=== PATIENT | male | born 1955 ===

== ENCOUNTER 2016-11-07 11:51 | Emergency (ER) | payer OTHER ==
[2016-11-07 11:54] VITALS: BMI 28.8
[2016-11-07 12:15] VITALS: BP 114/68; PULSE 78; RESP 18; TEMP 98.1; O2SAT 100
[2016-11-07] MEDS ORDERED: Iohexol 240 (50 ml) PO ONE (12:29)
[2016-11-07] MEDS ORDERED: Sodium Chloride 0.9% 1,000 ML IV STA ×2 (12:30→18:18)
--- NOTE | 2016-11-07 12:37 | ED PDOC ---
HPI: General Adult Time Seen by Provider: 11/07/16 12:25 Chief Complaint (Nursing): Flu-like Symptoms Chief Complaint (Provider): Bodyaches, vomiting History Per: Patient History/Exam Limitations: no limitations Onset/Duration Of Symptoms: Days (8) Have you had recent travel within the past 21 days to any of the following countries: [place], [place], [place] or [place]?: No Current Symptoms Are (Timing): Still Present Severity: Moderate Additional History Per: Patient Additional Complaint(s): The pt is a 61yo male with PMHx of HIV, clavicle tumor (surgeries for removal in 2004, 2009, 2014), pelvic surgery in 2016, presents to the ED for evaluation of bodyaches and vomiting for the past 8 days. Pt reports abdominal pain as well with associated dark colored diarrhea. He reports tactile fever and chills and states he is unable to eat anything. He denies any alcohol use, or taking medications for his symptoms. Pt additionally denies history of gastric ulcers. Of note, pt is currently on fentanyl and other medications due to his tumor history. He currently offers no additional medical complaints. PMD: Dr. Brad Ngo Past Medical History Reviewed: Historical Data, Nursing Documentation, Vital Signs Vital Signs: Last Vital Signs Temp 98.1 F 11/07/16 12:10 Pulse 78 11/07/16 12:10 Resp 18 11/07/16 12:10 BP 114/68 11/07/16 12:10 Pulse Ox 100 11/07/16 19:04 - Medical History PMH: Anemia, Arthritis, Depression, HIV, HTN, Hypercholesterolemia, Hypothyroidism, Malignancy, Sexually Transmitted Disease (HIV) Denies: CHF, COPD, Chronic Kidney Disease, Rheumatoid Arthritis - Surgical History Surgical History: Appendectomy - Family History Family History: States: Unknown Family Hx - Home Medications Home Medications: Ambulatory Orders Medication Instructions Recorded Azithromycin [Zithromax] 250 mg PO DAILY #1 packet 07/14/16 Benzonatate [Tessalon Perles] 100 mg PO TID #15 sgl 07/14/16 Cyanocobalamin [Vitamin B12 1000 1,000 mcg PO DAILY 07/14/16 mcg Tab] Darunavir [Prezista] 800 mg PO DAILY 07/14/16 Dolutegravir Sodium [Tivicay] 50 mg PO DAILY 07/14/16 Escitalopram [Lexapro] 20 mg PO DAILY 07/14/16 Folic Acid [Folic Acid] 1 mg PO DAILY 07/14/16 Gabapentin [Neurontin] 400 mg PO TID 07/14/16 Levothyroxine Sodium [Levoxyl] 137 mcg PO DAILY 07/14/16 Metoprolol Tartrate [Lopressor] 50 mg PO DAILY 07/14/16 Omeprazole [Omeprazole] 20 mg PO DAILY 07/14/16 Ritonavir [Norvir] 100 mg PO DAILY 07/14/16 Tamsulosin [Flomax] 0.4 mg PO DAILY 07/14/16 fentaNYL 100mcg/hr [Duragesic 1 patch TD Q72H 07/14/16 Patch 100mcg/hr] valACYclovir [Valtrex] 1 gm PO DAILY 07/14/16 Famotidine [Pepcid] 20 mg PO BID #10 tab 11/07/16 Ondansetron ODT [Zofran ODT] 4 mg PO Q8 PRN #4 odt 11/07/16 - Allergies Allergies/Adverse Reactions: Allergies Allergy/AdvReac Type Severity Reaction Status Date / Time No Known Allergies Allergy Verified 11/07/16 12:10 Review of Systems ROS Statement: Except As Marked, All Systems Reviewed And Found Negative Constitutional: Positive for: Malaise Gastrointestinal: Positive for: Vomiting, Abdominal Pain, Diarrhea (dark) Physical Exam - Reviewed Nursing Documentation Reviewed: Yes Vital Signs Reviewed: Yes - Physical Exam Appears: Positive for: Well, Non-toxic, Uncomfortable Head Exam: Positive for: ATRAUMATIC, NORMAL INSPECTION, NORMOCEPHALIC Skin: Positive for: Normal Color Eye Exam: Positive for: Normal appearance, EOMI, PERRL Neck: Positive for: Normal, Supple Cardiovascular/Chest: Positive for: Regular Rate, Rhythm Respiratory: Positive for: Normal Breath Sounds. Negative for: Respiratory Distress Gastrointestinal/Abdominal: Positive for: Soft, Tenderness (epigastric tenderness and mild right lower quadrant tenderness noted) Neurologic/Psych: Positive for: Alert, Oriented - Laboratory Results Result Diagrams: 11/07/16 13:45 11/07/16 14:30 - ECG O2 Sat by Pulse Oximetry: 100 (RA) Pulse Ox Interpretation: Normal Medical Decision Making Medical Decision Making: Time: 1234 Impression: Abdominal pain w/ vomiting and dark colored diarrhea x 8 days Plan: * CT AP w/ PO & IV Contrast * Bloodwork * IV Fluids * Zofran 4mg IVP * Protonix 80 mg IVP * Urinalysis * Reassess Time: 1903 CT AP FINDINGS: Lower thorax: No acute findings. ABDOMEN: Liver: There are 2 unchanged subcentimeter left hepatic lobe lesions too small to characterize by CT criteria. Gallbladder and bile ducts: Unremarkable. No calcified stones. No ductal dilation. Pancreas: Unremarkable. No mass. No ductal dilation. Spleen: Unremarkable. No splenomegaly. Adrenals: A 3.6 x 3.1 cm coarsely calcified left adrenal nodule is unchanged. A 1.5 x 1.4 cm coarsely calcified right adrenal nodule is unchanged Kidneys and ureters: Unremarkable. No solid mass. No hydronephrosis. Stomach and bowel: Unremarkable. No obstruction. No mucosal thickening. Appendix: There has been an appendectomy. PELVIS: Bladder: Unremarkable. No mass. Reproductive: Unremarkable as visualized. ABDOMEN and PELVIS: Intraperitoneal space: Unremarkable. No free air. No significant fluid collection. Bones/joints: Patient is post bilateral total hip arthroplasty. No acute fracture. No dislocation. Soft tissues: Unremarkable. Vasculature: Unremarkable. No abdominal aortic aneurysm. Lymph nodes: Unremarkable. No enlarged lymph nodes. IMPRESSION: No acute findings. Scribe Attestation: All records were documented by Martita Bloom, acting as a Scribe for SANDRINE Santos. Provider Scribe Attestation: All medical record entries made by the Scribe were at my direction and personally dictated by me. I have reviewed the chart and agree that the record accurately reflects my personal performance of the history, physical exam, medical decision making, and the department course for this patient. I have also personally directed, reviewed, and agree with the discharge instructions and disposition. Disposition - Clinical Impression Clinical Impression: Viral illness - Patient ED Disposition Is Patient to be Admitted: No - Disposition Disposition: Routine/Home Disposition Time: 19:48 Condition: FAIR Prescriptions: Famotidine [Pepcid] 20 mg PO BID #10 tab Ondansetron ODT [Zofran ODT] 4 mg PO Q8 PRN #4 odt PRN Reason: Nausea/Vomiting Instructions: Viral Syndrome (ED) Print Language: ARMENIAN
[2016-11-07] MEDS ORDERED: Iohexol 240 (50 ml) ONE (13:24)
[2016-11-07 13:53] LABS: BASO % 0.8 % (0.0-2.0); EOS # 0.2 K/uL (0.0-0.7); EOS % 3.3 % (0.0-4.0); HEMATOCRIT 32.3 % (35.0-51.0); LYMPH # 1.9 K/uL (1.0-4.3); MEAN CELL VOLUME 93.8 fl (80.0-94.0); MEAN CORPUSCULAR HEMOGLOBIN 31.5 pg (27.0-31.0); MEAN CORPUSCULAR HGB CONC 33.6 g/dL (33.0-37.0); MEAN PLATELET VOLUME 7.8 fl (7.2-11.7); MONO # 0.5 K/uL (0.0-0.8); MONO % 8.9 % (0.0-10.0); NEUT # 2.7 K/uL (1.8-7.0); RED CELL DISTRIBUTION WIDTH 15.1 % (11.5-14.5); WHITE BLOOD COUNT 5.3 K/uL (4.8-10.8)
[2016-11-07 14:28] LABS: RBC URINE 2 /hpf (0-3); URINE BACTERIA RARE (<OCC); URINE BILIRUBIN NEGATIVE (NEGATIVE); URINE BLOOD NEGATIVE (NEGATIVE); URINE COLOR YELLOW (YELLOW); URINE GLUCOSE (UA) NEG (Normal); URINE KETONE NEGATIVE (NEGATIVE); URINE LEUKOCYTE ESTERASE NEG Leu/uL (Negative); URINE PROTEIN 30 mg/dL (NEGATIVE); URINE UROBILINOGEN 0.2-1.0 mg/dL (0.2-1.0); WBC URINE 3 /hpf (0-5)
[2016-11-07 15:05] LABS: ALB/GLOB RATIO 1.2 (1.0-2.1); ALKALINE PHOSPHATASE 101 U/L (38-126); ALT/SGPT 36 U/L (21-72); AST/SGOT 40 U/L (17-59); BILIRUBIN,TOTAL 0.3 mg/dl (0.2-1.3); BLOOD UREA NITROGEN 8 mg/dl (9-20); CALCIUM 9.1 mg/dL (8.4-10.2); CARBON DIOXIDE 22 mmol/L (22-30); CHLORIDE 109 mmol/L (98-107); GFR AFRICAN-AMERICAN > 60; GLUCOSE,RANDOM 85 mg/dL (75-110); LIPASE 105 U/L (23-300); POTASSIUM 3.8 MMOL/L (3.6-5.0); SODIUM 139 mmol/l (132-148); TOTAL PROTEIN 6.9 G/DL (6.3-8.2)
[2016-11-07] MEDS ORDERED: Sodium Chloride 0.9% 50 ML IV ONE (17:41)
[2016-11-07] MEDS ORDERED: Iohexol 300 100 ML IJ ONE (17:41)
--- NOTE | 2016-11-08 09:58 | CT ---
PROCEDURE: CT Abdomen and Pelvis with contrast HISTORY: abd pain h/o bony tumor COMPARISON: 02/06/2016. TECHNIQUE: Contrast dose: 98 cc Omnipaque Radiation dose: Total exam DLP = 1918.94 mGy-cm. This CT exam was performed using one or more of the following dose reduction techniques: Automated exposure control, adjustment of the mA and/or kV according to patient size, and/or use of iterative reconstruction technique. FINDINGS: LOWER THORAX: Mild bibasilar atelectatic changes noted. The heart is not enlarged. There is no significant pericardial effusion. Coronary arterial calcifications noted. LIVER: Scattered geographic hypoattenuation could represent hepatic steatosis. Sub centimeter stable hypodensities noted in the left hepatic lobe, too small to characterize accurately, likely represent cysts or hemangiomas. GALLBLADDER AND BILE DUCTS: Unremarkable. PANCREAS: Unremarkable. No gross lesion or ductal dilatation. SPLEEN: Unremarkable. ADRENALS: Bilateral adrenal masses with coarse calcifications and stable. KIDNEYS AND URETERS: Unremarkable. No hydronephrosis. No solid mass. Bilateral dual collecting systems. VASCULATURE: Scattered atherosclerotic calcification throughout the abdominal aorta and its main branches. No abdominal aortic aneurysm. BOWEL: No bowel obstruction. APPENDIX: No CT evidence of acute appendicitis. PERITONEUM: Fluid in the cul-de-sac suboptimally evaluated due to extensive streak artifact from bilateral hip prosthesis. LYMPH NODES: Scattered lymph nodes along the pelvic sidewalls. The largest on the left measures 1.5 centimeters. The largest on the right measures 0.8 centimeters. This BLADDER: Bladder suboptimally seen due to streak artifact from bilateral hip prosthesis. REPRODUCTIVE: Lower pelvic structures suboptimally seen due to streak artifact from bilateral hip prosthesis. BONES: Bilateral hip prosthesis. Heterotopic bone formation in both hips. OTHER FINDINGS: None. IMPRESSION: No acute findings. Please note that this report is in general agreement with the preliminary report provided by [facility].
--- NOTE | 2016-11-10 10:11 | CARD ---
APPROVED REPORT EKG Measurement Heart [id number] <Conclusion> Normal sinus rhythm Right bundle branch block Abnormal ECG
== END 2016-11-07 20:30 | disposition home or self-care (01) ==
LOC: H.ER 11:51
DX: B34.9 Viral infection, unspecified (principal); I10 Essential (primary) hypertension; Z96.643 Presence of artificial hip joint, bilateral; Z86.59 Personal history of other mental and behavioral disorders; B20 Human immunodeficiency virus [HIV] disease

== ENCOUNTER 2016-12-29 12:06 | Observation (INO) | payer OTHER ==
[2016-12-29 12:06] VITALS: BMI 28.8
[2016-12-29 12:35] VITALS: BP 131/79; PULSE 80; RESP 16; TEMP 98.6; O2SAT 100
[2016-12-29] MEDS ORDERED: Sodium Chloride 0.9% 1,000 ML IV STA (13:09)
[2016-12-29] MEDS ORDERED: Iohexol 240 (50 ml) PO ONE (13:09)
[2016-12-29] MEDS ORDERED: Morphine 4 MG/ML VIAL IV ONE (13:09)
--- NOTE | 2016-12-29 13:14 | ED PDOC ---
HPI: Abdomen Time Seen by Provider: 12/29/16 12:46 Chief Complaint (Nursing): Abdominal Pain Chief Complaint (Provider): Abd pain History Per: Patient History/Exam Limitations: no limitations Onset/Duration Of Symptoms: Days (3) Additional Complaint(s): Pt. with diffuse abd pain. Nausea, vomit, diarrhea nonbloody. Pt. with no chest pain, dyspnea, weakness, headaches, dizziness. No back pain or dysuria. No new food or drinks. On fentanyl patches. Past Medical History Reviewed: Nursing Documentation, Vital Signs Vital Signs: Last Vital Signs Temp 98.6 F 12/29/16 12:32 Pulse 80 12/29/16 12:32 Resp 16 12/29/16 12:32 BP 131/79 12/29/16 12:32 Pulse Ox 100 12/29/16 16:27 - Medical History PMH: Anemia, Arthritis, Depression, HIV, HTN, Hypercholesterolemia, Hypothyroidism, Malignancy, Sexually Transmitted Disease (HIV) Denies: CHF, COPD, Chronic Kidney Disease, Rheumatoid Arthritis - Surgical History Surgical History: Appendectomy - Family History Family History: States: Unknown Family Hx - Social History Alcohol: None Drugs: Denies - Home Medications Home Medications: Ambulatory Orders Medication Instructions Recorded Azithromycin [Zithromax] 250 mg PO DAILY #1 packet 07/14/16 Benzonatate [Tessalon Perles] 100 mg PO TID #15 sgl 07/14/16 Cyanocobalamin [Vitamin B12 1000 1,000 mcg PO DAILY 07/14/16 mcg Tab] Darunavir [Prezista] 800 mg PO DAILY 07/14/16 Dolutegravir Sodium [Tivicay] 50 mg PO DAILY 07/14/16 Escitalopram [Lexapro] 20 mg PO DAILY 07/14/16 Folic Acid [Folic Acid] 1 mg PO DAILY 07/14/16 Gabapentin [Neurontin] 400 mg PO TID 07/14/16 Levothyroxine Sodium [Levoxyl] 137 mcg PO DAILY 07/14/16 Metoprolol Tartrate [Lopressor] 50 mg PO DAILY 07/14/16 Omeprazole [Omeprazole] 20 mg PO DAILY 07/14/16 Ritonavir [Norvir] 100 mg PO DAILY 07/14/16 Tamsulosin [Flomax] 0.4 mg PO DAILY 07/14/16 fentaNYL 100mcg/hr [Duragesic 1 patch TD Q72H 07/14/16 Patch 100mcg/hr] valACYclovir [Valtrex] 1 gm PO DAILY 07/14/16 Famotidine [Pepcid] 20 mg PO BID #10 tab 11/07/16 Ondansetron ODT [Zofran ODT] 4 mg PO Q8 PRN #4 odt 11/07/16 - Allergies Allergies/Adverse Reactions: Allergies Allergy/AdvReac Type Severity Reaction Status Date / Time No Known Allergies Allergy Verified 12/29/16 12:32 Review of Systems ROS Statement: Except As Marked, All Systems Reviewed And Found Negative Gastrointestinal: Positive for: Nausea, Vomiting, Abdominal Pain, Diarrhea Physical Exam - Reviewed Nursing Documentation Reviewed: Yes Vital Signs Reviewed: Yes - Physical Exam Appears: Positive for: Non-toxic, No Acute Distress Head Exam: Positive for: ATRAUMATIC, NORMAL INSPECTION, NORMOCEPHALIC Skin: Positive for: Normal Color, Warm, DRY Eye Exam: Positive for: EOMI, Normal appearance, PERRL ENT: Positive for: Normal ENT Inspection Neck: Positive for: Normal, Painless ROM Cardiovascular/Chest: Positive for: Regular Rate, Rhythm Respiratory: Positive for: CNT, Normal Breath Sounds Gastrointestinal/Abdominal: Positive for: Bowel Sounds, Soft, Tenderness ( diffuse). Negative for: Distended, Guarding Back: Positive for: Normal Inspection. Negative for: L CVA Tenderness, R CVA Tenderness Extremity: Positive for: Normal ROM. Negative for: Tenderness, Pedal Edema Neurologic/Psych: Positive for: Alert, Oriented - Laboratory Results Result Diagrams: 12/29/16 13:33 12/29/16 13:33 Interpretation Of Abn Labs: no acute - ECG O2 Sat by Pulse Oximetry: 100 ED OBSERVATION Discharge: Yes Date of observation admission: 12/29/16 Time of observation admission: 13:15 - Observation admission statement Patient is being placed in observation because:: Abd pain - Goals of Observation Goals of observation are:: Pain eval - Progress Note Progress Note: 12/29/16 17:11 Pain free. Tolerated po. AAOx3. Fu with pcp. Disposition - Clinical Impression Clinical Impression: Abdominal pain - Patient ED Disposition Is Patient to be Admitted: No Counseled Patient/Family Regarding: Studies Performed, Diagnosis, Need For Followup - Disposition Disposition: Routine/Home Disposition Time: 17:12 Condition: STABLE
[2016-12-29] MEDS ORDERED: Iohexol 240 (50 ml) ONE (13:20)
[2016-12-29 13:42] LABS: BASO # 0.1 K/uL (0.0-0.2); BASO % 0.9 % (0.0-2.0); EOS # 0.2 K/uL (0.0-0.7); EOS % 2.4 % (0.0-4.0); HEMOGLOBIN 12.9 g/dL (12.0-18.0); LYMPH # 2.2 K/uL (1.0-4.3); LYMPH % 35.3 % (20.0-40.0); MEAN CELL VOLUME 97.2 fl (80.0-94.0); MEAN CORPUSCULAR HEMOGLOBIN 32.6 pg (27.0-31.0); MEAN CORPUSCULAR HGB CONC 33.5 g/dL (33.0-37.0); MEAN PLATELET VOLUME 7.7 fl (7.2-11.7); MONO # 0.5 K/uL (0.0-0.8); MONO % 7.3 % (0.0-10.0); NEUT # 3.4 K/uL (1.8-7.0); NEUT % 54.1 % (50.0-75.0); RBC 3.97 Mil/uL (4.40-5.90); RED CELL DISTRIBUTION WIDTH 16.6 % (11.5-14.5); WHITE BLOOD COUNT 6.4 K/uL (4.8-10.8)
[2016-12-29 13:51] LABS: ALB/GLOB RATIO 1.2 (1.0-2.1); ALBUMIN 4.8 g/dL (3.5-5.0); ALT/SGPT 37 U/L (21-72); AST/SGOT 36 U/L (17-59); BLOOD UREA NITROGEN 15 mg/dl (9-20); GFR AFRICAN-AMERICAN > 60; GFR NON-AFRICAN AMERICAN > 60; LIPASE 82 U/L (23-300)
[2016-12-29] MEDS ORDERED: Iohexol 300 100 ML IJ ONE (15:00)
[2016-12-29] MEDS ORDERED: Sodium Chloride 0.9% 50 ML IV ONE (15:01)
--- NOTE | 2016-12-29 16:59 | CT ---
PROCEDURE: CT Abdomen and Pelvis with contrast HISTORY: abd pain COMPARISON: 11/07/2016 TECHNIQUE: Contrast dose: 95 mL Omnipaque 300 Radiation dose: Total exam DLP = 709.02 mGy-cm. This CT exam was performed using one or more of the following dose reduction techniques: Automated exposure control, adjustment of the mA and/or kV according to patient size, and/or use of iterative reconstruction technique. FINDINGS: LOWER THORAX: Unremarkable. LIVER: Normal attenuation. Multiple small low-attenuation lesions, nonspecific. Largest 1.3 cm in left lobe of liver. No biliary dilatation. Smooth contour. Mild hepatomegaly. GALLBLADDER AND BILE DUCTS: Unremarkable. PANCREAS: Unremarkable. No gross lesion or ductal dilatation. SPLEEN: Unremarkable. ADRENALS: Right adrenal mass with coarse calcifications, 1.4 cm. No change. Several left adrenal masses with coarse calcifications, largest 3.1 cm. No change. KIDNEYS AND URETERS: 6 mm nonspecific low attenuation lesion in the mid right kidney. No other renal mass. No calculus or hydronephrosis. VASCULATURE: Unremarkable. No aortic aneurysm. BOWEL: Sigmoid diverticulosis. No evidence of diverticulitis. No bowel obstruction. Mural thickening of short segment of superior rectum, likely artifactual due to inadequate distention. Recent examination of 11/07/2016 showed no mural thickening with adequate distention with enteral contrast. APPENDIX: Not identified. No secondary findings to suggest acute appendicitis. PERITONEUM: No ascites. No pneumoperitoneum. LYMPH NODES: Unremarkable. No enlarged lymph nodes. BLADDER: Limited evaluation due to beam hardening artifact from bilateral hip prostheses. Grossly normal. REPRODUCTIVE: Unable to evaluate prostate due to beam hardening artifact from hip prostheses. BONES: No acute fracture. OTHER FINDINGS: Status post bilateral total hip replacement. IMPRESSION: No acute abnormality. Minor findings as above.
== END 2016-12-29 17:25 | disposition home or self-care (01) ==
LOC: H.ER 12:06 → H.EROBSV 13:09
PROVIDERS: ADMIT Emergency Medicine; ATTEND Emergency Medicine
DX: R10.9 Unspecified abdominal pain (principal); Z21 Asymptomatic human immunodeficiency virus [HIV] infection status; E03.9 Hypothyroidism, unspecified; E78.00 Pure hypercholesterolemia, unspecified; I10 Essential (primary) hypertension; D64.9 Anemia, unspecified; F32.9 Major depressive disorder, single episode, unspecified; M19.90 Unspecified osteoarthritis, unspecified site; Z79.899 Other long term (current) drug therapy

== ENCOUNTER 2017-07-09 17:59 | Emergency (ER) | payer OTHER ==
[2017-07-09 17:59] VITALS: BMI 28.8
[2017-07-09 18:17] VITALS: TEMP 98.1
[2017-07-09] MEDS ORDERED: Sodium Chloride 0.9% 1,000 ML IV STA (18:56)
[2017-07-09 20:10] LABS: VENOUS BLOOD GAS BASE EXCESS -0.4 mmol/L (0.0-2.0); VENOUS BLOOD GAS PCO2 38 mmHg (40-60); VENOUS BLOOD GAS PO2 61 mm/Hg (30-55); VENOUS BLOOD PH 7.41 (7.32-7.43)
[2017-07-09 20:10] LABS: BASO # 0.1 K/uL (0.0-0.2); BASO % 1.4 % (0.0-2.0); EOS # 0.2 K/uL (0.0-0.7); EOS % 1.6 % (0.0-4.0); HEMOGLOBIN 10.5 g/dL (12.0-18.0); LYMPH % 30.2 % (20.0-40.0); MEAN CORPUSCULAR HEMOGLOBIN 33.8 pg (27.0-31.0); MEAN CORPUSCULAR HGB CONC 34.2 g/dL (33.0-37.0); MEAN PLATELET VOLUME 7.9 fl (7.2-11.7); MONO # 0.6 K/uL (0.0-0.8); NEUT # 6.1 K/uL (1.8-7.0); NEUT % 60.8 % (50.0-75.0); NRBC % 0.1 % (0.0-0.0); RBC 3.1 Mil/uL (4.40-5.90); RED CELL DISTRIBUTION WIDTH 15.2 % (11.5-14.5); WHITE BLOOD COUNT 10.1 K/uL (4.8-10.8)
[2017-07-09 20:11] VITALS: BP 109/71; PULSE 81; RESP 16; O2SAT 96
--- NOTE | 2017-07-09 20:34 | ED PDOC ---
HPI: Abdomen Chief Complaint (Provider): Abdominal Pain History Per: Patient History/Exam Limitations: no limitations Onset/Duration Of Symptoms: Days (2-3 days ago) Current Symptoms Are (Timing): Still Present Location Of Pain/Discomfort: Suprapubic Associated Symptoms: Other (flank pain) <Ariella Morrow - Last Filed: 07/09/17 23:47> <Bruce Swanson - Last Filed: 07/10/17 01:47> Time Seen by Provider: 07/09/17 18:17 Chief Complaint (Nursing): Abdominal Pain Additional Complaint(s): 62 y/o male with a history of HTN, HIV, Hypothyroidism, presents to the ED complaining of constant suprapubic pain radiating towards his left flank associated with dark urine and burning sensation upon urination, onset of 2-3 days. Patient reports pain has worsened since onset and states that he had similar symptoms in the past when he had a kidney infection. He denies any melena or hematochezia, chills, fever, vomiting, constipation or diarrhea. ( Ariella Morrow) Past Medical History Reviewed: Historical Data, Nursing Documentation, Vital Signs - Medical History PMH: Anemia, Arthritis, Depression, HIV, HTN, Hypercholesterolemia, Hypothyroidism, Malignancy, Sexually Transmitted Disease (HIV) Denies: CHF, COPD, Chronic Kidney Disease, Rheumatoid Arthritis - Surgical History Surgical History: Appendectomy Other surgeries: Bilateral Hip Replacements - Family History Family History: States: Hypertension - Social History Current smoker - smoking cessation education provided: No Ex-Smoker (has not smoked in the last 12 months): No Alcohol: None Drugs: Denies <Ariella Morrow - Last Filed: 07/09/17 23:47> <Bruce Swanson - Last Filed: 07/10/17 01:47> Vital Signs: Last Vital Signs Temp 98.1 F 07/09/17 18:15 Pulse 81 07/09/17 19:50 Resp 16 07/09/17 19:50 BP 109/71 07/09/17 19:50 Pulse Ox 96 07/09/17 23:49 - Home Medications Home Medications: Ambulatory Orders Medication Instructions Recorded Azithromycin [Zithromax] 250 mg PO DAILY #1 packet 07/14/16 Benzonatate [Tessalon Perles] 100 mg PO TID #15 sgl 07/14/16 Cyanocobalamin [Vitamin B12 1000 1,000 mcg PO DAILY 07/14/16 mcg Tab] Darunavir [Prezista] 800 mg PO DAILY 07/14/16 Dolutegravir Sodium [Tivicay] 50 mg PO DAILY 07/14/16 Escitalopram [Lexapro] 20 mg PO DAILY 07/14/16 Folic Acid [Folic Acid] 1 mg PO DAILY 07/14/16 Gabapentin [Neurontin] 400 mg PO TID 07/14/16 Levothyroxine Sodium [Levoxyl] 137 mcg PO DAILY 07/14/16 Metoprolol Tartrate [Lopressor] 50 mg PO DAILY 07/14/16 Omeprazole [Omeprazole] 20 mg PO DAILY 07/14/16 Ritonavir [Norvir] 100 mg PO DAILY 07/14/16 Tamsulosin [Flomax] 0.4 mg PO DAILY 07/14/16 fentaNYL 100mcg/hr [Duragesic 1 patch TD Q72H 07/14/16 Patch 100mcg/hr] valACYclovir [Valtrex] 1 gm PO DAILY 07/14/16 Famotidine [Pepcid] 20 mg PO BID #10 tab 11/07/16 Ondansetron ODT [Zofran ODT] 4 mg PO Q8 PRN #4 odt 11/07/16 Famotidine [Pepcid] 20 mg PO DAILY PRN #6 tab 12/29/16 Levofloxacin [Levaquin] 750 mg PO QAM #9 tablet 07/10/17 - Allergies Allergies/Adverse Reactions: Allergies Allergy/AdvReac Type Severity Reaction Status Date / Time No Known Allergies Allergy Verified 12/29/16 12:32 Review of Systems ROS Statement: Except As Marked, All Systems Reviewed And Found Negative Constitutional: Positive for: Weakness, Malaise, Other (fatigue). Negative for : Fever, Chills Gastrointestinal: Positive for: Abdominal Pain (suprapubic pain radiating to left flank). Negative for: Nausea, Vomiting, Diarrhea, Constipation, Melena, Hematochezia Genitourinary Male: Positive for: Dysuria (burning sensation), Other (dark urine ) <Ariella Morrow - Last Filed: 07/09/17 23:47> Physical Exam - Reviewed Nursing Documentation Reviewed: Yes Vital Signs Reviewed: Yes - Physical Exam Appears: Positive for: Non-toxic, In Acute Distress Head Exam: Positive for: ATRAUMATIC, NORMOCEPHALIC Skin: Positive for: Warm, Dry Eye Exam: Positive for: EOMI, PERRL ENT: Positive for: Other (dry mucus membranes). Negative for: Pharyngeal Erythema, Tonsillar Exudate Neck: Positive for: Painless ROM, Supple Cardiovascular/Chest: Positive for: Regular Rate, Rhythm, Chest Non Tender. Negative for: Murmur Respiratory: Positive for: Normal Breath Sounds. Negative for: Respiratory Distress Gastrointestinal/Abdominal: Positive for: Soft, Tenderness (suprapubic tenderness). Negative for: Mass, Distended, Guarding Back: Positive for: L CVA Tenderness. Negative for: Decreased ROM Extremity: Positive for: Normal ROM. Negative for: Deformity Lymphatic: Negative for: Adenopathy Neurologic/Psych: Positive for: Alert. Negative for: Motor/Sensory Deficits <Ariella Morrow - Last Filed: 07/09/17 23:47> - Laboratory Results Result Diagrams: 07/09/17 20:03 - ECG O2 Sat by Pulse Oximetry: 96 (RA) Pulse Ox Interpretation: Normal <Ariella Morrow - Last Filed: 07/09/17 23:47> - Laboratory Results Result Diagrams: 07/09/17 20:03 07/09/17 23:59 <Bruce Swanson - Last Filed: 07/10/17 01:47> Medical Decision Making: Time: --18:56 Impression: --Suprapubic pain radiating to left flank Differential: --UTI, Cystitis, Pylonephritis, Renal Colic, Colitis Plan: --Alcohol Serum --Labs --Drug Screen urine --Lact acid, plasma --Lipase --ED urine Dip --Toradol 30 mg IV --iV fluids --urine Culture --urinalysis --iv Insertion Reassess -- Scribe Attestation: Documented by Ty Chaney acting as a scribe for Ariella Morrow MD. Provider Attestation: All medical record entries made by the Scribe were at my direction and personally dictated by me. I have reviewed the chart and agree that the record accurately reflects my personal performance of the history, physical exam, medical decision making, and the department course for this patient. I have also personally directed, reviewed, and agree with the discharge instructions and disposition. (Ariella Morrow) Disposition <Ariella Morrow - Last Filed: 07/09/17 23:47> <Bruce Swanson - Last Filed: 07/10/17 01:47> - Clinical Impression Clinical Impression: UTI (urinary tract infection) - Disposition Condition: STABLE Prescriptions: Levofloxacin [Levaquin] 750 mg PO QAM #9 tablet Instructions: Urinary Tract Infection in Men (ED) Forms: [facility] (Sinhala)
[2017-07-09 20:47] LABS: BARBITURATES, UR NEGATIVE (NEGATIVE); BENZODIAZEPINES, UR NEGATIVE (NEGATIVE)
[2017-07-09 20:48] LABS: OPIATES, UR NEGATIVE (NEGATIVE)
[2017-07-10 00:11] LABS: SQUAMOUS EPITHIAL < 1 /hpf (0-5); URINE BILIRUBIN NEGATIVE (NEGATIVE); URINE BLOOD NEGATIVE (NEGATIVE); URINE CLARITY CLEAR (Clear); URINE COLOR AMBER (YELLOW); URINE GLUCOSE (UA) NEG (Normal); URINE LEUKOCYTE ESTERASE NEG Leu/uL (Negative); URINE NITRATE POSITIVE (NEGATIVE); URINE PROTEIN NEGATIVE (NEGATIVE)
[2017-07-10 00:16] LABS: PHENCYCLIDINE, UR NEGATIVE (NEGATIVE)
[2017-07-10 00:46] LABS: ALB/GLOB RATIO 1.3 (1.0-2.1); ALBUMIN 3.8 g/dL (3.5-5.0); ALT/SGPT 34 U/L (21-72); AST/SGOT 28 U/L (17-59); BLOOD UREA NITROGEN 21 mg/dl (9-20); CALCIUM 8.5 mg/dL (8.4-10.2); GFR AFRICAN-AMERICAN > 60; GFR NON-AFRICAN AMERICAN 56; LIPASE 123 U/L (23-300)
--- NOTE | 2017-07-10 01:58 | ED PDOC ---
- Laboratory Results Result Diagrams: 07/09/17 20:03 07/09/17 23:59 - ECG O2 Sat by Pulse Oximetry: 96 (RA) Pulse Ox Interpretation: Normal Medical Decision Making Medical Decision Making: Time: 00:00 Patient signed out to me by Dr. Morrow pending land and reevaluation. Clinical Impression: Urinary Tract Infection Upon provider evaluation patient is medically stable, labs were reviewed and show no clinically significant abnormality with exception of urine analysis indicative of infection. Patient was diagnosed with urinary tract infection and will be discharged with Rx for Levaquin 750mg. Counseling was provided and all questions were answered regarding diagnosis and need for follow up with PMD. Scribe Attestation: Documented by Homer Samuel, acting as a scribe for Bruce Swanson MD Provider Scribe Attestation: All medical record entries made by the Scribe were at my direction and personally dictated by me. I have reviewed the chart and agree that the record accurately reflects my personal performance of the history, physical exam, medical decision making, and the department course for this patient. I have also personally directed, reviewed, and agree with the discharge instructions and disposition. Disposition - Clinical Impression Clinical Impression: UTI (urinary tract infection) - POA Present On Arrival: None - Disposition Disposition: Routine/Home Disposition Time: 01:53 Condition: STABLE Prescriptions: Levofloxacin [Levaquin] 750 mg PO QAM #9 tablet Instructions: Urinary Tract Infection in Men (ED) Forms: [facility] (Serbian)
[2017-07-10] MEDS ORDERED: cefTRIAXone (Rocephin) 1 gm Inj ONE (02:11)
== END 2017-07-10 03:40 | disposition home or self-care (01) ==
LOC: H.ER 17:59
DX: N39.0 Urinary tract infection, site not specified (principal); E03.9 Hypothyroidism, unspecified; E78.00 Pure hypercholesterolemia, unspecified; F32.9 Major depressive disorder, single episode, unspecified; I10 Essential (primary) hypertension; Z87.891 Personal history of nicotine dependence; Z96.643 Presence of artificial hip joint, bilateral; B20 Human immunodeficiency virus [HIV] disease
CPT/HCPCS: 80053; 80320; 80324; 80345; 80346; 80349; 80353; 80358; 80361; 81003; 82803; 83605; 83690; 83992; 85025; 87086; 96374; 96375; 99283; J0696; J1885; J7040

== ENCOUNTER 2017-07-31 13:22 | Emergency (ER) | payer OTHER ==
[2017-07-31 13:22] VITALS: BMI 28.8
[2017-07-31 13:43] VITALS: TEMP 97.7
--- NOTE | 2017-07-31 14:45 | ED PDOC ---
HPI: Abdomen Time Seen by Provider: 07/31/17 14:23 Chief Complaint (Nursing): Abdominal Pain Chief Complaint (Provider): Abdominal Pain History Per: Patient History/Exam Limitations: no limitations Onset/Duration Of Symptoms: Days (x3) Outside of [place] travel?: No Current Symptoms Are (Timing): Still Present Pain Scale Rating Of: 7 Location Of Pain/Discomfort: Periumbilical Associated Symptoms: Chills, Vomiting, Urinary Symptoms (dysuria and frequency) . denies: Fever Exacerbating Factors: None Alleviating Factors: None Additional Complaint(s): 62 year old male presents to the ED complaining of periumbilical abdominal pain x3 days. The patient reports that his pain radiates to his bilateral flank and is associated with dysuria, frequency, chills and 2 episodes of non bloody/non bilious vomit. Denies fever, diarrhea, black/bloody stools. The patient states that he was seen in this ER 2 weeks ago and diagnosed with a urinary trat infection which he states occurs frequently. PMD: [facility], Brad Vera Past Medical History Reviewed: Historical Data, Nursing Documentation, Vital Signs Vital Signs: Last Vital Signs Temp 97.7 F 07/31/17 13:43 Pulse 76 07/31/17 21:43 Resp 18 07/31/17 21:43 BP 117/64 07/31/17 21:43 Pulse Ox 100 07/31/17 21:43 - Medical History PMH: Anemia, Arthritis, Depression, HIV, HTN, Hypercholesterolemia, Hypothyroidism, Malignancy, Sexually Transmitted Disease (HIV) Denies: CHF, COPD, Chronic Kidney Disease, Rheumatoid Arthritis - Surgical History Surgical History: Appendectomy - Family History Family History: States: Unknown Family Hx, Hypertension - Living Arrangements Living Arrangements: With Family - Social History Current smoker - smoking cessation education provided: No Ex-Smoker (has not smoked in the last 12 months): No Alcohol: None Drugs: Denies - Home Medications Home Medications: Ambulatory Orders Medication Instructions Recorded Azithromycin [Zithromax] 250 mg PO DAILY #1 packet 07/14/16 Benzonatate [Tessalon Perles] 100 mg PO TID #15 sgl 07/14/16 Cyanocobalamin [Vitamin B12 1000 1,000 mcg PO DAILY 07/14/16 mcg Tab] Darunavir [Prezista] 800 mg PO DAILY 07/14/16 Dolutegravir Sodium [Tivicay] 50 mg PO DAILY 07/14/16 Escitalopram [Lexapro] 20 mg PO DAILY 07/14/16 Folic Acid [Folic Acid] 1 mg PO DAILY 07/14/16 Gabapentin [Neurontin] 400 mg PO TID 07/14/16 Levothyroxine Sodium [Levoxyl] 137 mcg PO DAILY 07/14/16 Metoprolol Tartrate [Lopressor] 50 mg PO DAILY 07/14/16 Omeprazole [Omeprazole] 20 mg PO DAILY 07/14/16 Ritonavir [Norvir] 100 mg PO DAILY 07/14/16 Tamsulosin [Flomax] 0.4 mg PO DAILY 07/14/16 fentaNYL 100mcg/hr [Duragesic 1 patch TD Q72H 07/14/16 Patch 100mcg/hr] valACYclovir [Valtrex] 1 gm PO DAILY 07/14/16 Famotidine [Pepcid] 20 mg PO BID #10 tab 11/07/16 Ondansetron ODT [Zofran ODT] 4 mg PO Q8 PRN #4 odt 11/07/16 Famotidine [Pepcid] 20 mg PO DAILY PRN #6 tab 12/29/16 Levofloxacin [Levaquin] 750 mg PO QAM #9 tablet 07/10/17 Dicyclomine [Bentyl] 20 mg PO BID PRN #30 tab 07/31/17 Nitrofurantoin Macrocrystals 1 cap PO BID #14 cap 07/31/17 [Macrobid] - Allergies Allergies/Adverse Reactions: Allergies Allergy/AdvReac Type Severity Reaction Status Date / Time No Known Allergies Allergy Verified 12/29/16 12:32 Review of Systems ROS Statement: Except As Marked, All Systems Reviewed And Found Negative Constitutional: Positive for: Chills. Negative for: Fever Gastrointestinal: Positive for: Vomiting (x3 episodes ), Abdominal Pain, Other ( Denies black/bloody stools). Negative for: Diarrhea Physical Exam - Reviewed Nursing Documentation Reviewed: Yes Vital Signs Reviewed: Yes - Physical Exam Appears: Positive for: Non-toxic, No Acute Distress Head Exam: Positive for: ATRAUMATIC, NORMAL INSPECTION, NORMOCEPHALIC Skin: Positive for: Normal Color, Warm, Dry. Negative for: Rash Eye Exam: Positive for: Normal appearance, EOMI, PERRL ENT: Positive for: Normal ENT Inspection. Negative for: Nasal Congestion, Tonsillar Exudate, Tonsillar Swelling Neck: Positive for: Normal, Painless ROM, Supple Cardiovascular/Chest: Positive for: Regular Rate, Rhythm, Chest Non Tender. Negative for: Tachycardia Respiratory: Positive for: Normal Breath Sounds. Negative for: Rhonchi, Wheezing, Respiratory Distress Gastrointestinal/Abdominal: Positive for: Bowel Sounds, Soft, Tenderness ( periumbilical tenderness to palpation ). Negative for: Mass, Guarding, Rebound Back: Positive for: L CVA Tenderness, R CVA Tenderness. Negative for: Normal Inspection Extremity: Positive for: Normal ROM. Negative for: Tenderness, Deformity, Swelling Neurologic/Psych: Positive for: Alert, Oriented, Gait. Negative for: Motor/ Sensory Deficits - Laboratory Results Result Diagrams: 07/31/17 15:05 07/31/17 15:05 - ECG O2 Sat by Pulse Oximetry: 96 (RA) Pulse Ox Interpretation: Normal Medical Decision Making Medical Decision Makin Initial Impression 62 y/o male presenting with abdominal pain Differentials: UTI, Pylonephritis, Enteritis, Gastritis Initial Plan: * Type and Screen * VBG * EKG * Alcohol Serum * Ammonia * Drug Screen * Lipase * Magnesium * Phosphorous * Udip * CBC * Partial Thromboplastin * Prothrombin time * Protonix inj 40mg IVP * Zofran 8mg IV * Blood Culture * Urine culture * Urinalysis * Reevaluation 1925 EXAM: CT Abdomen and Pelvis With Intravenous Contrast EXAM DATE/TIME: 07/31/2017 3:38 PM CLINICAL HISTORY: 62 years old, male; Pain; Abdominal pain; Generalized; Prior surgery; Surgery date: 6+ months; Surgery type: Appendectomy. B/l hips. Hiv malignancy; Additional info: Abd pain R/O diverticultiis TECHNIQUE: Axial computed tomography images of the abdomen and pelvis with intravenous contrast. All CT scans at this facility use one or more dose reduction techniques, viz.: automated exposure control; ma/kV adjustment per patient size (including targeted exams where dose is matched to indication; i.e. head); or iterative reconstruction technique. Coronal and sagittal reformatted images were created and reviewed. CONTRAST: 98 mL of OMNIPAQUE administered intravenously. COMPARISON: Prior CT abdomen and pelvis of 2016-12-29 FINDINGS: LIMITATIONS: Mild to moderate streak/motion artifact. Streak artifact from arthroplasty devices in the hips bilaterally. LOWER THORAX: No infiltrate seen in the lung bases. ABDOMEN: LIVER: Fatty infiltration of the liver. Few small low density liver lesions, most likely representing cysts. The largest of these measures 11 mm. GALLBLADDER AND BILE DUCTS: Suspect a tiny stone in the gallbladder fundus. Mild biliary ductal dilatation, with the common bile duct measuring up to 9 mm in diameter, cause not identified by CT. Gallbladder appears mildly contracted. No CT evidence of acute cholecystitis. No radiopaque common bile duct stones are visualized. PANCREAS: No CT evidence of acute pancreatitis. SPLEEN: No acute abnormality of the spleen identified. ADRENALS: Stable appearance of bilateral calcified adrenal masses. These are similar in appearance, having well-defined margins and demonstrating multiple small amorphous calcifications. The larger mass, on the left, measures 4 cm. KIDNEYS AND URETERS: No acute abnormality of the kidneys identified. No evidence of significant hydrouereteronephrosis. STOMACH AND BOWEL: Colonic diverticulosis, with no evidence of acute diverticulitis. Otherwise, no significant abnormality of the bowel is identified, allowing for motion artifact. No evidence of bowel obstruction. APPENDIX: Normal appendix is not seen, and there is a reported history of previous appendectomy. PELVIS: BLADDER: Mild thickening of the bladder wall. REPRODUCTIVE: No acute abnormality of the reproductive organs is seen. ABDOMEN and PELVIS: INTRAPERITONEAL SPACE: No evidence of free intraperitoneal air or fluid. BONES/JOINTS: Arthroplasty devices in the hips bilaterally. Bony structures appear demineralized. SOFT TISSUES: Heterotopic ossification in the left hip soft tissues, abutting the arthroplasty device. No acute abnormality of the visualized soft tissues is seen. VASCULATURE: No evidence of abdominal aortic aneurysm. No evidence of periaortic hemorrhage. LYMPH NODES: No evidence of diffuse lymphadenopathy. IMPRESSION: - Mild bladder wall thickening. This is a nonspecific finding, but can be seen with cystitis. Recommend clinical correlation. - Mild biliary ductal dilatation, cause not identified. Recommend correlation with LFTs for laboratory evidence of biliary obstruction, and further workup as indicated, such as with right upper quadrant ultrasound. - Otherwise, no evidence of significant acute process. - Bilateral calcified adrenal masses, stable compared to a 12/29/26 CT. Most likely, the findings are related to remote adrenal infection versus remote adrenal hemorrhage. Consider a follow-up abdominal CT or MR in 12 months. Alternatively, if there is a history of malignancy, consider further evaluation with PET, unenhanced abdominal CT or MR. - See above for remaining findings. Labs with no emergently significant abnormalities. Stable for dc. FP resident ( Dr Abbott) came down to direct for clinic followup. Documented by Meeta Ritter acting as a scribe for Ariella Morrow MD. All medical record entries made by the Scribe were at my direction and personally dictated by me. I have reviewed the chart and agree that the record accurately reflects my personal performance of the history, physical exam, medical decision making, and the department course for this patient. I have also personally directed, reviewed, and agree with the discharge instructions and disposition. Disposition - Clinical Impression Clinical Impression: UTI (urinary tract infection), Abdominal pain Discussed With Dr.: Annmarie Abbott Counseled Patient/Family Regarding: Studies Performed, Diagnosis, Need For Followup, Rx Given - Disposition Referrals: Brad Ngo MD [Family Provider] - 08/01/17 Disposition: Routine/Home Disposition Time: 20:00 Condition: GOOD Prescriptions: Dicyclomine [Bentyl] 20 mg PO BID PRN #30 tab PRN Reason: abdominal pain Nitrofurantoin Macrocrystals [Macrobid] 1 cap PO BID #14 cap Instructions: Urinary Tract Infections in Adults, Stomach Ache and Stomach Upset Forms: [facility] (Wolof) Print Language: DIVEHI
[2017-07-31 14:54] LABS: VENOUS BLOOD GAS BASE EXCESS -0.1 mmol/L (0.0-2.0); VENOUS BLOOD GAS PCO2 47 mmHg (40-60); VENOUS BLOOD GAS PO2 16 mm/Hg (30-55); VENOUS BLOOD PH 7.35 (7.32-7.43)
[2017-07-31 15:21] LABS: BASO % 0.9 % (0.0-2.0); EOS # 0.1 K/uL (0.0-0.7); EOS % 2.4 % (0.0-4.0); HEMOGLOBIN 10.5 g/dL (12.0-18.0); LYMPH # 1.8 K/uL (1.0-4.3); MEAN CELL VOLUME 100.5 fl (80.0-94.0); MEAN CORPUSCULAR HGB CONC 33.8 g/dL (33.0-37.0); MEAN PLATELET VOLUME 7.4 fl (7.2-11.7); MONO # 0.4 K/uL (0.0-0.8); NEUT # 2.6 K/uL (1.8-7.0); NEUT % 52.7 % (50.0-75.0); NRBC % 0.1 % (0.0-0.0); RBC 3.08 Mil/uL (4.40-5.90); RED CELL DISTRIBUTION WIDTH 14.4 % (11.5-14.5); WHITE BLOOD COUNT 4.9 K/uL (4.8-10.8)
[2017-07-31 15:23] LABS: ALB/GLOB RATIO 1.2 (1.0-2.1); ALBUMIN 4.1 g/dL (3.5-5.0); CALCIUM 8.9 mg/dL (8.4-10.2); GFR AFRICAN-AMERICAN > 60; GFR NON-AFRICAN AMERICAN > 60; LIPASE 77 U/L (23-300)
[2017-07-31 15:28] LABS: ALT/SGPT 30 U/L (21-72); AST/SGOT 35 U/L (17-59); BLOOD UREA NITROGEN 24 mg/dl (9-20); MAGNESIUM 2.1 MG/DL (1.6-2.3)
[2017-07-31 15:34] LABS: INR 1.1 (0.9-1.2); PARTIAL THROMBOPLASTIN TIME 24.2 Seconds (25.6-37.1); PROTHROMBIN TIME 12.7 Seconds (9.8-13.1)
[2017-07-31] MEDS ORDERED: Lactated Ringer's 1,000 ML IV STA (15:42)
[2017-07-31 15:54] LABS: URINE BILIRUBIN NEGATIVE (NEGATIVE); URINE BLOOD SMALL (NEGATIVE); URINE CLARITY CLEAR (Clear); URINE COLOR AMBER (YELLOW); URINE GLUCOSE (UA) NEG (Normal); URINE LEUKOCYTE ESTERASE NEG Leu/uL (Negative); URINE NITRATE POSITIVE (NEGATIVE); URINE PROTEIN NEGATIVE (NEGATIVE)
[2017-07-31 16:15] LABS: BARBITURATES, UR NEGATIVE (NEGATIVE); BENZODIAZEPINES, UR NEGATIVE (NEGATIVE); OPIATES, UR NEGATIVE (NEGATIVE); PHENCYCLIDINE, UR NEGATIVE (NEGATIVE)
[2017-07-31] MEDS ORDERED: Iohexol 300 100 ML IJ ONE (17:30)
[2017-07-31] MEDS ORDERED: Sodium Chloride 0.9% 50 ML IV ONE (17:31)
--- NOTE | 2017-07-31 19:26 | CT ---
EXAM: CT Abdomen and Pelvis With Intravenous Contrast EXAM DATE/TIME: 07/31/2017 3:38 PM CLINICAL HISTORY: 62 years old, male; Pain; Abdominal pain; Generalized; Prior surgery; Surgery date: 6+ months; Surgery type: Appendectomy. B/l hips. Hiv malignancy; Additional info: Abd pain R/O diverticultiis TECHNIQUE: Axial computed tomography images of the abdomen and pelvis with intravenous contrast. All CT scans at this facility use one or more dose reduction techniques, viz.: automated exposure control; ma/kV adjustment per patient size (including targeted exams where dose is matched to indication; i.e. head); or iterative reconstruction technique. Coronal and sagittal reformatted images were created and reviewed. CONTRAST: 98 mL of OMNIPAQUE administered intravenously. COMPARISON: Prior CT abdomen and pelvis of 2016-12-29 FINDINGS: LIMITATIONS: Mild to moderate streak/motion artifact. Streak artifact from arthroplasty devices in the hips bilaterally. LOWER THORAX: No infiltrate seen in the lung bases. ABDOMEN: LIVER: Fatty infiltration of the liver. Few small low density liver lesions, most likely representing cysts. The largest of these measures 11 mm. GALLBLADDER AND BILE DUCTS: Suspect a tiny stone in the gallbladder fundus. Mild biliary ductal dilatation, with the common bile duct measuring up to 9 mm in diameter, cause not identified by CT. Gallbladder appears mildly contracted. No CT evidence of acute cholecystitis. No radiopaque common bile duct stones are visualized. PANCREAS: No CT evidence of acute pancreatitis. SPLEEN: No acute abnormality of the spleen identified. ADRENALS: Stable appearance of bilateral calcified adrenal masses. These are similar in appearance, having well-defined margins and demonstrating multiple small amorphous calcifications. The larger mass, on the left, measures 4 cm. KIDNEYS AND URETERS: No acute abnormality of the kidneys identified. No evidence of significant hydrouereteronephrosis. STOMACH AND BOWEL: Colonic diverticulosis, with no evidence of acute diverticulitis. Otherwise, no significant abnormality of the bowel is identified, allowing for motion artifact. No evidence of bowel obstruction. APPENDIX: Normal appendix is not seen, and there is a reported history of previous appendectomy. PELVIS: BLADDER: Mild thickening of the bladder wall. REPRODUCTIVE: No acute abnormality of the reproductive organs is seen. ABDOMEN and PELVIS: INTRAPERITONEAL SPACE: No evidence of free intraperitoneal air or fluid. BONES/JOINTS: Arthroplasty devices in the hips bilaterally. Bony structures appear demineralized. SOFT TISSUES: Heterotopic ossification in the left hip soft tissues, abutting the arthroplasty device. No acute abnormality of the visualized soft tissues is seen. VASCULATURE: No evidence of abdominal aortic aneurysm. No evidence of periaortic hemorrhage. LYMPH NODES: No evidence of diffuse lymphadenopathy. IMPRESSION: - Mild bladder wall thickening. This is a nonspecific finding, but can be seen with cystitis. Recommend clinical correlation. - Mild biliary ductal dilatation, cause not identified. Recommend correlation with LFTs for laboratory evidence of biliary obstruction, and further workup as indicated, such as with right upper quadrant ultrasound. - Otherwise, no evidence of significant acute process. - Bilateral calcified adrenal masses, stable compared to a 12/29/26 CT. Most likely, the findings are related to remote adrenal infection versus remote adrenal hemorrhage. Consider a follow-up abdominal CT or MR in 12 months. Alternatively, if there is a history of malignancy, consider further evaluation with PET, unenhanced abdominal CT or MR. - See above for remaining findings.
[2017-07-31 21:43] VITALS: BP 117/64; PULSE 76; RESP 18
--- NOTE | 2017-08-01 08:59 | CARD ---
APPROVED REPORT EKG Measurement Heart [id number] <Conclusion> Normal sinus rhythm Right bundle branch block Abnormal ECG
[2017-08-01 22:40] VITALS: O2SAT 96
== END 2017-07-31 21:55 | disposition home or self-care (01) ==
LOC: H.ER 13:22
DX: N39.0 Urinary tract infection, site not specified (principal); E03.9 Hypothyroidism, unspecified; E78.00 Pure hypercholesterolemia, unspecified; F32.9 Major depressive disorder, single episode, unspecified; I10 Essential (primary) hypertension; R94.5 Abnormal results of liver function studies
CPT/HCPCS: 74177; 80053; 80320; 80324; 80345; 80346; 80349; 80353; 80358; 80361; 81003; 82140; 82803; 82948; 83690; 83735; 83992; 84100; 85025; 85610; 85730; 86850; 86900; 87040; 87086; 93005; 96361; 96374; 96375; 99283; C9113; J2405; J7120; Q9967

== ENCOUNTER 2017-10-08 13:44 | Observation (INO) | payer OTHER ==
[2017-10-08 13:44] VITALS: BMI 28.8
[2017-10-08] MEDS ORDERED: Sodium Chloride 0.9% 1,000 ML IV STA (14:09)
[2017-10-08 14:28] LABS: VENOUS BLOOD GAS BASE EXCESS -3.2 mmol/L (0.0-2.0); VENOUS BLOOD GAS PCO2 43 mmHg (40-60); VENOUS BLOOD GAS PO2 29 mm/Hg (30-55); VENOUS BLOOD PH 7.33 (7.32-7.43)
[2017-10-08 14:52] LABS: EOS # 0.1 K/uL (0.0-0.7); EOS % 2.2 % (0.0-4.0); HEMOGLOBIN 10.9 g/dL (12.0-18.0); LYMPH # 1.6 K/uL (1.0-4.3); LYMPH % 31.3 % (20.0-40.0); MEAN CELL VOLUME 102.8 fl (80.0-94.0); MEAN PLATELET VOLUME 7.3 fl (7.2-11.7); MONO # 0.5 K/uL (0.0-0.8); MONO % 10.7 % (0.0-10.0); NEUT # 2.8 K/uL (1.8-7.0); NEUT % 54.8 % (50.0-75.0); NRBC % 0.1 % (0.0-0.0); RBC 3.13 Mil/uL (4.40-5.90); RED CELL DISTRIBUTION WIDTH 14.8 % (11.5-14.5)
[2017-10-08 14:53] LABS: BARBITURATES, UR NEGATIVE (NEGATIVE); OPIATES, UR NEGATIVE (NEGATIVE); PHENCYCLIDINE, UR NEGATIVE (NEGATIVE)
[2017-10-08 15:00] LABS: GRANULAR CAST 1 /lpf (0-1); SQUAMOUS EPITHIAL < 1 /hpf (0-5); URINE BACTERIA RARE (<OCC); URINE BILIRUBIN NEGATIVE (NEGATIVE); URINE BLOOD NEGATIVE (NEGATIVE); URINE CLARITY SLIGHTY-CLOUDY (Clear); URINE COLOR AMBER (YELLOW); URINE GLUCOSE (UA) NEG (Normal); URINE HYALINE CAST >20 /hpf (0-2); URINE LEUKOCYTE ESTERASE NEG Leu/uL (Negative); URINE PROTEIN 100 mg/dL (NEGATIVE)
[2017-10-08 15:01] LABS: URINE AMORPHOUS SEDIMENT FEW /ul (<OCC)
--- NOTE | 2017-10-08 15:01 | ED PDOC ---
HPI: Abdomen Time Seen by Provider: 10/08/17 13:58 Chief Complaint (Nursing): GI Problem Chief Complaint (Provider): GI Problem History Per: Patient History/Exam Limitations: no limitations Onset/Duration Of Symptoms: Days (x3) Current Symptoms Are (Timing): Still Present Additional Complaint(s): 62 year old male with medical history hypertension, hypothyroidism and HIV, presents to the emergency department with a complaint of nausea, nobloody vomiting and diarrhea ongoing for 3 days. He also reports having general weakness with bodyaches and dizziness. He denies any chest pain or shortness of breath. Has abd pain. No new food or drinks. No travel. PMD: Brad Ngo MD Past Medical History Reviewed: Historical Data, Nursing Documentation, Vital Signs Vital Signs: Last Vital Signs Temp 98.1 F 10/08/17 13:54 Pulse 84 10/08/17 13:54 Resp 18 10/08/17 13:54 BP 108/72 10/08/17 13:54 Pulse Ox 98 10/08/17 15:56 - Medical History PMH: Anemia, Arthritis, Depression, HIV, HTN, Hypercholesterolemia, Hypothyroidism, Malignancy, Sexually Transmitted Disease (HIV) Denies: CHF, COPD, Chronic Kidney Disease, Rheumatoid Arthritis - Surgical History Surgical History: Appendectomy - Family History Family History: States: Unknown Family Hx, Hypertension - Social History Current smoker - smoking cessation education provided: No Ex-Smoker (has not smoked in the last 12 months): No Alcohol: None Drugs: Denies - Home Medications Home Medications: Ambulatory Orders Medication Instructions Recorded Cyanocobalamin [Vitamin B12 1000 1,000 mcg PO DAILY 07/14/16 mcg Tab] Darunavir [Prezista] 800 mg PO DAILY 07/14/16 Folic Acid [Folic Acid] 1 mg PO DAILY 07/14/16 Gabapentin [Neurontin] 600 mg PO DAILY 07/14/16 Levothyroxine Sodium [Levoxyl] 150 mcg PO DAILY 07/14/16 Metoprolol Tartrate [Lopressor] 50 mg PO DAILY 07/14/16 Omeprazole [Omeprazole] 20 mg PO DAILY 07/14/16 Ritonavir [Norvir] 100 mg PO DAILY 07/14/16 Tamsulosin [Flomax] 0.4 mg PO DAILY 07/14/16 fentaNYL 100mcg/hr [Duragesic 1 patch TD Q72H 07/14/16 Patch 100mcg/hr] valACYclovir [Valtrex] 1 gm PO DAILY 07/14/16 Famotidine [Pepcid] 20 mg PO BID #10 tab 11/07/16 Famotidine [Pepcid] 20 mg PO DAILY PRN #6 tab 12/29/16 Dolutegravir Sodium [Tivicay] 50 mg PO DAILY 10/08/17 Emtricitabine/Tenofov Alafenam 1 each PO DAILY 10/08/17 [Descovy 200-25 mg Tablet] Fluticasone Nasal [Flonase] 2 spray IN Q12 10/08/17 Gabapentin [Neurontin] 600 mg PO DAILY 10/08/17 Lansoprazole [Prevacid] 15 mg PO DAILY 10/08/17 Lisinopril [Zestril] 10 mg PO DAILY 10/08/17 Mirtazapine [Remeron] 15 mg PO HS 10/08/17 hydroCHLOROthiazide [Microzide] 12.5 mg PO DAILY 10/08/17 - Allergies Allergies/Adverse Reactions: Allergies Allergy/AdvReac Type Severity Reaction Status Date / Time No Known Allergies Allergy Verified 12/29/16 12:32 Review of Systems ROS Statement: Except As Marked, All Systems Reviewed And Found Negative Constitutional: Positive for: Weakness (bodyaches) Cardiovascular: Negative for: Chest Pain Respiratory: Negative for: Shortness of Breath Gastrointestinal: Positive for: Nausea, Vomiting (nonbloody), Abdominal Pain, Diarrhea Neurological: Positive for: Dizziness Physical Exam - Reviewed Nursing Documentation Reviewed: Yes Vital Signs Reviewed: Yes - Physical Exam Appears: Positive for: Non-toxic, No Acute Distress Head Exam: Positive for: ATRAUMATIC, NORMAL INSPECTION, NORMOCEPHALIC Skin: Positive for: Normal Color Eye Exam: Positive for: Normal appearance, EOMI, PERRL ENT: Positive for: Normal ENT Inspection. Negative for: Pharyngeal Erythema, Tonsillar Swelling Neck: Positive for: Normal Cardiovascular/Chest: Positive for: Regular Rate, Rhythm. Negative for: Murmur Respiratory: Positive for: Normal Breath Sounds. Negative for: Wheezing, Respiratory Distress Gastrointestinal/Abdominal: Positive for: Soft, Tenderness (diffuse) Back: Positive for: Normal Inspection. Negative for: L CVA Tenderness, R CVA Tenderness Extremity: Positive for: Normal ROM (upper/lower). Negative for: Tenderness, Pedal Edema Neurologic/Psych: Positive for: Alert (x3), Oriented. Negative for: Motor/ Sensory Deficits - Laboratory Results Result Diagrams: 10/08/17 14:20 10/08/17 14:20 Interpretation Of Abn Labs: 23/2.3 bun/cr - ECG O2 Sat by Pulse Oximetry: 98 (RA) Pulse Ox Interpretation: Normal - CT Scan/US ct Other Rad Studies (CT/US): Read By Radiologist Other Rad Interpretation: sigmoid thickening - Progress ED Course And Treament: 1557: Stable. AAOx3. Will need admit for IV antibiotics and monitoring. Does not meet SIRS, not septic. Medical Decision Making Medical Decision Making: Initial Impression: Nausea, vomiting, diarrhea, weakness Initial Plan: * VBG * CT ABD/pelvis without contrast * CT head without contrast * Alcohol serum * CMP * Drug screen, urine * Lipase * Troponin I * Urine dipstick * BC * Bentyl 10mg PO * NS 1,000ml IV per 1000mls/hr * Zofran 4mg PO * Blood culture * Urine culture * UA ____ Time: 1507 --CT head FINDINGS: HEMORRHAGE: No intracranial hemorrhage. BRAIN: There is redemonstration of cystic encephalomalacia in the right paramedian inferior frontal lobe. There are mild chronic microangiopathic changes. There is no mass, mass effect or abnormal extra-axial fluid collection. VENTRICLES: Unremarkable. No hydrocephalus. CALVARIUM: Status post bifrontal craniotomies. PARANASAL SINUSES: Predominantly clear. MASTOID AIR CELLS: Predominantly clear. OTHER FINDINGS: None. IMPRESSION: No acute intracranial abnormality. 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 No other significant interval change. Time: 1529 --CT ABD/pelvis FINDINGS: LOWER THORAX: There is dependent atelectasis in the lung bases. LIVER: There is mild hepatomegaly and fatty liver. There is a stable 11 mm simple cyst in the left hepatic lobe. No ductal dilatation. GALLBLADDER AND BILE DUCTS: There are no calcified gallstones. PANCREAS: Normal in size. No gross lesion or ductal dilatation. SPLEEN: Normal in size. ADRENALS: Again seen are stable calcified Patanol gland masses, larger on the left which measures 3.2 x 2.7 cm KIDNEYS AND URETERS: Normal in size without nephrolithiasis. No hydronephrosis. No solid mass. VASCULATURE: No aortic aneurysm. BOWEL: The small bowel loops are normal in caliber. There is circumferential mural thickening in the sigmoid colon (series 601, image 65 and series 2, image 76. No bowel dilatation or obstruction. APPENDIX: No inflammatory changes in the right lower quadrant. PERITONEUM: No free fluid. No free air. LYMPH NODES: No enlarged lymph nodes. BLADDER: Partially decompressed. REPRODUCTIVE: Unremarkable. BONES: No acute fracture. Within normal limits for the patient's age. OTHER FINDINGS: None. IMPRESSION: 1. No nephrolithiasis, hydronephrosis or obstructive uropathy. 2. Focal circumferential mural thickening in the sigmoid colon is nonspecific and evaluation is limited in the absence of oral contrast and can be related to underdistention however malignancy cannot be entirely excluded. Clinical follow- up and correlation with CT with oral contrast or sigmoidoscopy on a non emergent basis is advised. 3. Stable chronic findings as described above. Scribe Attestation: Documented by Linette Edmond, acting as a scribe for Arnaldo Gudino MD. Provider Scribe Attestation: All medical record entries made by the Scribe were at my direction and personally dictated by me. I have reviewed the chart and agree that the record accurately reflects my personal performance of the history, physical exam, medical decision making, and the department course for this patient. I have also personally directed, reviewed, and agree with the discharge instructions and disposition. Disposition - Clinical Impression Clinical Impression: Renal insufficiency, Colitis - Patient ED Disposition Is Patient to be Admitted: Yes Counseled Patient/Family Regarding: Studies Performed, Diagnosis - Disposition Disposition Time: 15:00 Condition: FAIR - Pt Status Changed To: Hospital Disposition Of: Observation - POA Present On Arrival: None
[2017-10-08 15:07] LABS: ALB/GLOB RATIO 1.1 (1.0-2.1); ALBUMIN 4.2 g/dL (3.5-5.0); ALT/SGPT 35 U/L (21-72); AST/SGOT 70 U/L (17-59); BLOOD UREA NITROGEN 23 mg/dl (9-20); CALCIUM 9.1 mg/dL (8.4-10.2); GFR AFRICAN-AMERICAN 35; GFR NON-AFRICAN AMERICAN 29; LIPASE 108 U/L (23-300)
--- NOTE | 2017-10-08 15:08 | CT ---
PROCEDURE: CT HEAD WITHOUT CONTRAST. HISTORY: Headache COMPARISON: 07/14/2016. TECHNIQUE: Axial computed tomography images were obtained through the head/brain without intravenous contrast. Radiation dose: Total exam DLP = 906.37 mGy-cm. This CT exam was performed using one or more of the following dose reduction techniques: Automated exposure control, adjustment of the mA and/or kV according to patient size, and/or use of iterative reconstruction technique. FINDINGS: HEMORRHAGE: No intracranial hemorrhage. BRAIN: There is redemonstration of cystic encephalomalacia in the right paramedian inferior frontal lobe. There are mild chronic microangiopathic changes. There is no mass, mass effect or abnormal extra-axial fluid collection. VENTRICLES: Unremarkable. No hydrocephalus. CALVARIUM: Status post bifrontal craniotomies. PARANASAL SINUSES: Predominantly clear. MASTOID AIR CELLS: Predominantly clear. OTHER FINDINGS: None. IMPRESSION: No acute intracranial abnormality. 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 No other significant interval change.
--- NOTE | 2017-10-08 15:30 | CT ---
PROCEDURE: CT Abdomen and Pelvis without intravenous contrast HISTORY: R/O stone COMPARISON: 07/31/2017. TECHNIQUE: CT scan of the abdomen and pelvis was performed without administration of intravenous contrast. Oral contrast was not administered. Coronal and sagittal reformatted images were obtained. Radiation dose: Total exam DLP = Total exam DLP = 605.50 mGy-cm. This CT exam was performed using one or more of the following dose reduction techniques: Automated exposure control, adjustment of the mA and/or kV according to patient size, and/or use of iterative reconstruction technique. FINDINGS: LOWER THORAX: There is dependent atelectasis in the lung bases. LIVER: There is mild hepatomegaly and fatty liver. There is a stable 11 mm simple cyst in the left hepatic lobe. No ductal dilatation. GALLBLADDER AND BILE DUCTS: There are no calcified gallstones. PANCREAS: Normal in size. No gross lesion or ductal dilatation. SPLEEN: Normal in size. ADRENALS: Again seen are stable calcified Patanol gland masses, larger on the left which measures 3.2 x 2.7 cm KIDNEYS AND URETERS: Normal in size without nephrolithiasis. No hydronephrosis. No solid mass. VASCULATURE: No aortic aneurysm. BOWEL: The small bowel loops are normal in caliber. There is circumferential mural thickening in the sigmoid colon (series 601, image 65 and series 2, image 76. No bowel dilatation or obstruction. APPENDIX: No inflammatory changes in the right lower quadrant. PERITONEUM: No free fluid. No free air. LYMPH NODES: No enlarged lymph nodes. BLADDER: Partially decompressed. REPRODUCTIVE: Unremarkable. BONES: No acute fracture. Within normal limits for the patient's age. OTHER FINDINGS: None. IMPRESSION: 1. No nephrolithiasis, hydronephrosis or obstructive uropathy. 2. Focal circumferential mural thickening in the sigmoid colon is nonspecific and evaluation is limited in the absence of oral contrast and can be related to underdistention however malignancy cannot be entirely excluded. Clinical follow-up and correlation with CT with oral contrast or sigmoidoscopy on a non emergent basis is advised. 3. Stable chronic findings as described above.
[2017-10-08] MEDS ORDERED: Ciprofloxacin 400mg/200ml D5W 400 MG/200 ML BAG IV STA (15:57)
[2017-10-08] MEDS ORDERED: metroNIDAZOLE 500mg/100ml NS 100 ML IV STA (15:57)
[2017-10-08] MEDS ORDERED: metroNIDAZOLE 500mg/100ml NS 100 ML IVPB ONE (16:13)
[2017-10-08] MEDS ORDERED: Ciprofloxacin 400mg/200ml D5W 400 MG/200 ML BAG IVPB ONE (16:13)
--- NOTE | 2017-10-08 17:24 | CP.PCM.HP ---
History of Present Illness - History of Present Illness History of Present Illness: CC: vomiting and diarrhea HPI: 62 y/o man w/ pmh of HIV (not AIDS), HTN, hypothyroidism presents to the ED w/ nausea, vomiting, and diarrhea. Patient reports vomiting and diarrhea for 3 days. Patient reports 4-5 episodes of non-bloody, watery diarrhea/day and multiple episodes of non-bloody/non-bilious vomit. Patient denies new foods , sick contacts, or recent travel. Patient is not able to tolerate PO and reports mild umbilical abdominal pain. Patient reports umbilical pain as pressure-like, non-radiating, not alleviated by anything, and worsened w/ movement. Patient reports adherence to medication and regular follow up w/ Dr. Ngo (last seen 09/27/2017). Patient denies headaches, chest pain, SOB, dysuria, or fever. ED course: vitals: 97.6 F, 78 beats/min, 118/78 mm Hg, resp 19, O2 98% room air CBC: 5.0>10.9/32.3<102.8 CMP: 139/5.0, 101/17, 23/2.3, glucose 89, AST 70, ALT 35, alk phos 75 troponin: <0.0120 lipase: 108 CT head: no acute intracranial abnormality CT abdomen/pelvis w/o PO and IV contrast: circumferential mural thickening in the sigmoid colon PMD: Dr. Brad Ngo PMH: HIV (not AIDS) , HTN, hypothyroidism meds: see med list allergies: NKDA PSH: Meningioma resection, right hip Replacement, left hip replacement, appendectomy Fam: Denies any FH of CAD/FL, HTN, CVA, DM II Mother from Throat Cancer SOC: denies smoking, alcohol, and drugs ROS: 12 points assessed and negative unless otherwise reported in HPI Present on Admission - Present on Admission Any Indicators Present on Admission: No History of DVT/PE: No History of Uncontrolled Diabetes: No Urinary Catheter: No Decubitus Ulcer Present: No Review of Systems - Review of Systems All systems: reviewed and no additional remarkable complaints except - Constitutional Constitutional: absent: Chills, Fever, Headache - EENT Eyes: absent: Change in Vision - Cardiovascular Cardiovascular: absent: Chest Pain - Respiratory Respiratory: absent: Dyspnea - Gastrointestinal Gastrointestinal: As Per HPI, Abdominal Pain, Diarrhea, Loose Stools, Nausea, Vomiting - Genitourinary Genitourinary: absent: Dysuria - Integumentary Integumentary: absent: Rash Past Patient History - Infectious Disease Hx of Infectious Diseases: None - Past Medical History & Family History Past Medical History?: Yes - Past Social History Alcohol: None Drugs: Denies - CARDIAC Hx Congestive Heart Failure: No Hx Hypercholesterolemia: Yes Hx Hypertension: Yes - PULMONARY Hx Chronic Obstructive Pulmonary Disease (COPD): No - NEUROLOGICAL Other/Comment: Hx of meningioma s/p surgery - HEENT Hx Deafness: Yes (rt ear deafness) - RENAL Hx Chronic Kidney Disease: No - ENDOCRINE/METABOLIC Hx Hypothyroidism: Yes - HEMATOLOGICAL/ONCOLOGICAL Hx Anemia: Yes Hx Human Immunodeficiency Virus (HIV): Yes - INTEGUMENTARY Other/Comment: Left shoulder/ upper back with "tumor removed" - MUSCULOSKELETAL/RHEUMATOLOGICAL Hx Arthritis: Yes Hx Rheumatoid Arthritis: No - GASTROINTESTINAL Hx Gastrointestinal Disorders: Yes Hx Gastroesophageal Reflux: Yes - GENITOURINARY/GYNECOLOGICAL Hx Sexually Transmitted Disorders: Yes (HIV) - PSYCHIATRIC Hx Depression: Yes - SURGICAL HISTORY Hx Appendectomy: Yes - ANESTHESIA Hx Anesthesia: Yes Hx Anesthesia Reactions: No Meds Allergies/Adverse Reactions: Allergies Allergy/AdvReac Type Severity Reaction Status Date / Time No Known Allergies Allergy Verified 12/29/16 12:32 Physical Exam - Constitutional Appears: Non-toxic, No Acute Distress - Head Exam Head Exam: NORMAL INSPECTION, NORMOCEPHALIC Additional comments: healed incision from meningioma resection - Eye Exam Eye Exam: Normal appearance Pupil Exam: NORMAL ACCOMODATION - ENT Exam ENT Exam: Mucous Membranes Moist - Neck Exam Neck exam: Positive for: Full Rom. Negative for: Tenderness - Respiratory Exam Respiratory Exam: Clear to Auscultation Bilateral. absent: Accessory Muscle Use , Decreased Breath Sounds, Rales, Rhonchi, Wheezes, Respiratory Distress - Cardiovascular Exam Cardiovascular Exam: REGULAR RHYTHM. absent: Tachycardia - GI/Abdominal Exam GI & Abdominal Exam: Normal Bowel Sounds, Soft, Tenderness (umbilical). absent : Distended - Extremities Exam Extremities exam: Negative for: calf tenderness, pedal edema, tenderness - Neurological Exam Neurological exam: Alert, Oriented x3 - Skin Skin Exam: Dry, Normal Color, Warm Additional comments: healed scars from previous excisional biopsies on left clavicle and neck Results - Vital Signs Recent Vital Signs: Last Vital Signs Temp 97.6 F 10/08/17 16:21 Pulse 78 10/08/17 16:21 Resp 19 10/08/17 16:21 BP 118/78 10/08/17 16:21 Pulse Ox 98 10/08/17 16:21 - Labs Result Diagrams: 10/08/17 14:20 10/08/17 14:20 Labs: Laboratory Results - last 24 hr 10/08/17 10/08/17 10/08/17 14:00 14:20 14:20 WBC 5.0 RBC 3.13 L Hgb 10.9 L Hct 32.2 L MCV 102.8 H D MCH 35.0 H MCHC 34.0 RDW 14.8 H Plt Count 405 H D MPV 7.3 Neut % (Auto) 54.8 Lymph % (Auto) 31.3 [place] % (Auto) 10.7 H Eos % (Auto) 2.2 Baso % (Auto) 1.0 Neut # (Auto) 2.8 Lymph # (Auto) 1.6 [place] # (Auto) 0.5 Eos # (Auto) 0.1 Baso # (Auto) 0.0 pO2 29 L VBG pH 7.33 VBG pCO2 43 VBG HCO3 21.1 VBG Total CO2 24.0 VBG O2 Sat (Calc) 47.3 VBG Base Excess -3.2 L VBG Potassium 3.9 Sodium 136.0 139 Chloride 103.0 101 Glucose 91 Lactate 3.3 H FiO2 21.0 Potassium 5.0 Carbon Dioxide 17 L Anion Gap 26 H BUN 23 H Creatinine 2.3 H Est GFR ( Amer) 35 Est GFR (Non-Af Amer) 29 Random Glucose 89 Calcium 9.1 Total Bilirubin 0.9 AST 70 H D ALT 35 Alkaline Phosphatase 75 Troponin I < 0.0120 Total Protein 8.0 Albumin 4.2 Globulin 3.8 Albumin/Globulin Ratio 1.1 Lipase 108 Venous Blood Potassium 3.9 Urine Color Urine Clarity Urine pH Ur Specific [place] Urine Protein Urine Glucose (UA) Urine Ketones Urine Blood Urine Nitrate Urine Bilirubin Urine Urobilinogen Ur Leukocyte Esterase Urine RBC (Auto) Urine Microscopic WBC Ur Squamous Epith Cells Amorphous Sediment Urine Bacteria Hyaline Casts Granular Casts (Auto) Urine Opiates Screen Ur Barbiturates Screen Ur Phencyclidine Scrn Ur Amphetamines Screen U Oth Cocaine Metabols U Cannabinoids Screen Alcohol, Quantitative < 10 10/08/17 10/08/17 14:20 14:20 WBC RBC Hgb Hct MCV MCH MCHC RDW Plt Count MPV Neut % (Auto) Lymph % (Auto) [place] % (Auto) Eos % (Auto) Baso % (Auto) Neut # (Auto) Lymph # (Auto) [place] # (Auto) Eos # (Auto) Baso # (Auto) pO2 VBG pH VBG pCO2 VBG HCO3 VBG Total CO2 VBG O2 Sat (Calc) VBG Base Excess VBG Potassium Sodium Chloride Glucose Lactate FiO2 Potassium Carbon Dioxide Anion Gap BUN Creatinine Est GFR ( Amer) Est GFR (Non-Af Amer) Random Glucose Calcium Total Bilirubin AST ALT Alkaline Phosphatase Troponin I Total Protein Albumin Globulin Albumin/Globulin Ratio Lipase Venous Blood Potassium Urine Color [place] Urine Clarity Slighty-cloudy Urine pH 6.0 Ur Specific [place] 1.023 Urine Protein 100 Urine Glucose (UA) Neg Urine Ketones 20 Urine Blood Negative Urine Nitrate Negative Urine Bilirubin Negative Urine Urobilinogen 2.0 Ur Leukocyte Esterase Neg Urine RBC (Auto) 3 Urine Microscopic WBC 3 Ur Squamous Epith Cells < 1 Amorphous Sediment Few H Urine Bacteria Rare Hyaline Casts >20 H Granular Casts (Auto) 1 Urine Opiates Screen Negative Ur Barbiturates Screen Negative Ur Phencyclidine Scrn Negative Ur Amphetamines Screen Negative U Oth Cocaine Metabols Negative U Cannabinoids Screen Negative Alcohol, Quantitative Assessment & Plan - Assessment and Plan (Free Text) Assessment: 62 y/o man w/ pmh of HIV (not AIDS), HTN, hypothyroidism presents to the ED w/ nausea, vomiting, and diarrhea Plan: nausea/vomiting/diarrhea - most likely colitis - vitals: 97.6 F, 78 beats/min, 118/78 mm Hg, resp 19, O2 98% room air - CBC: 5.0>10.9/32.3<102.8 - CMP: 139/5.0, 101/17, 23/2.3, glucose 89, AST 70, ALT 35, alk phos 75 - troponin: <0.0120 - lipase: 108 - CT head: no acute intracranial abnormality - CT abdomen/pelvis w/o PO and IV contrast: circumferential mural thickening in the sigmoid colon - IVF D5 LR @ 125 mL/h - cipro 400 mg IV Q12h - flagyl 500 mg IV Q8h - zofran 4 mg IV Q6 prn - protonix 40 mg IV daily - f/u blood, urine, and stool cultures - f/u stool studies for possible infectious causes - monitor for acute changes - admit to [facility] acute kidney injury - Cr 2.3 - IVF D5 LR @ 125 mL/h HIV - not AIDS - CD4 06/2017: 528 - viral load 06/2017: <20 - c/w prevista, tivicay, descovy, and norvir HTN - controlled w/ medication - c/w lisinopril and metroprolol tartrate hypothyroidism - c/w levothyroxine 150 mcg PO daily prophylactic measures - DVT: heparin 5,000 units SC Q8 until MERCEDES resolves
[2017-10-08 17:37] LABS: BENZODIAZEPINES, UR NEGATIVE (NEGATIVE)
[2017-10-08] MEDS: Dextrose 5%/Lactated Ringer's 1,000 ML IV SCH (20:45)
[2017-10-09] MEDS: metroNIDAZOLE 500mg/100ml NS 100 ML IVPB SCH ×3 (00:54→17:56)
[2017-10-09] MEDS: Dextrose 5%/Lactated Ringer's 1,000 ML IV SCH ×3 (01:30→17:57)
[2017-10-09] MEDS: Levothyroxine 150 MCG TAB PO SCH (06:25)
[2017-10-09 07:38] LABS: EOS # 0.1 K/uL (0.0-0.7); EOS % 3.1 % (0.0-4.0); HEMOGLOBIN 10.5 g/dL (12.0-18.0); LYMPH # 2.3 K/uL (1.0-4.3); LYMPH % 50.1 % (20.0-40.0); MEAN CELL VOLUME 101.8 fl (80.0-94.0); MEAN CORPUSCULAR HEMOGLOBIN 35.2 pg (27.0-31.0); MEAN CORPUSCULAR HGB CONC 34.6 g/dL (33.0-37.0); MEAN PLATELET VOLUME 7.2 fl (7.2-11.7); MONO # 0.5 K/uL (0.0-0.8); MONO % 10.1 % (0.0-10.0); NEUT # 1.6 K/uL (1.8-7.0); NEUT % 35.7 % (50.0-75.0); NRBC % 0.1 % (0.0-0.0); RBC 2.99 Mil/uL (4.40-5.90); RED CELL DISTRIBUTION WIDTH 14.7 % (11.5-14.5); WHITE BLOOD COUNT 4.5 K/uL (4.8-10.8)
[2017-10-09 08:02] LABS: ALB/GLOB RATIO 1.1 (1.0-2.1); ALBUMIN 3.5 g/dL (3.5-5.0); ALT/SGPT 43 U/L (21-72); AST/SGOT 46 U/L (17-59); BLOOD UREA NITROGEN 16 mg/dl (9-20); CALCIUM 8.7 mg/dL (8.4-10.2); GFR AFRICAN-AMERICAN > 60; GFR NON-AFRICAN AMERICAN 52
[2017-10-09] MEDS ORDERED: Potassium Chloride 20 mEq ER Tab PO ONE (08:22)
[2017-10-09] MEDS ORDERED: TENOFOV ALAFENAM PO SCH (09:00)
[2017-10-09] MEDS ORDERED: EMTRICITABINE PO SCH (09:00)
[2017-10-09] MEDS ORDERED: RITONAVIR 100 MG PO SCH (09:00)
[2017-10-09] MEDS: Ciprofloxacin 400mg/200ml D5W 400 MG/200 ML BAG IVPB SCH ×2 (09:20→21:35)
--- NOTE | 2017-10-09 10:30 | CP.PCM.DIS ---
Provider - Provider Date of Admission: 10/08/17 16:02 Attending physician: Diya Morales MD Hospital Course - Lab Results Lab Results: Most Recent Lab Values WBC 4.5 K/uL (4.8-10.8) L 10/09/17 06:40 RBC 2.99 Mil/uL (4.40-5.90) L 10/09/17 06:40 Hgb 10.5 g/dL (12.0-18.0) L 10/09/17 06:40 Hct 30.4 % (35.0-51.0) L 10/09/17 06:40 MCV 101.8 fl (80.0-94.0) H 10/09/17 06:40 MCH 35.2 pg (27.0-31.0) H 10/09/17 06:40 MCHC 34.6 g/dL (33.0-37.0) 10/09/17 06:40 RDW 14.7 % (11.5-14.5) H 10/09/17 06:40 Plt Count 376 K/uL (130-400) 10/09/17 06:40 MPV 7.2 fl (7.2-11.7) 10/09/17 06:40 Neut % (Auto) 35.7 % (50.0-75.0) L 10/09/17 06:40 Lymph % (Auto) 50.1 % (20.0-40.0) H 10/09/17 06:40 [place] % (Auto) 10.1 % (0.0-10.0) H 10/09/17 06:40 Eos % (Auto) 3.1 % (0.0-4.0) 10/09/17 06:40 Baso % (Auto) 1.0 % (0.0-2.0) 10/09/17 06:40 Neut # (Auto) 1.6 K/uL (1.8-7.0) L 10/09/17 06:40 Lymph # (Auto) 2.3 K/uL (1.0-4.3) 10/09/17 06:40 [place] # (Auto) 0.5 K/uL (0.0-0.8) 10/09/17 06:40 Eos # (Auto) 0.1 K/uL (0.0-0.7) 10/09/17 06:40 Baso # (Auto) 0.0 K/uL (0.0-0.2) 10/09/17 06:40 pO2 29 mm/Hg (30-55) L 10/08/17 14:00 VBG pH 7.33 (7.32-7.43) 10/08/17 14:00 VBG pCO2 43 mmHg (40-60) 10/08/17 14:00 VBG HCO3 21.1 mmol/L 10/08/17 14:00 VBG Total CO2 24.0 mmol/L (22-28) 10/08/17 14:00 VBG O2 Sat (Calc) 47.3 % (40-65) 10/08/17 14:00 VBG Base Excess -3.2 mmol/L (0.0-2.0) L 10/08/17 14:00 VBG Potassium 3.9 mmol/L (3.6-5.2) 10/08/17 14:00 Sodium 136.0 mmol/L (132-148) 10/08/17 14:00 Chloride 103.0 mmol/L (98-107) 10/08/17 14:00 Glucose 91 mg/dL (75-110) 10/08/17 14:00 Lactate 3.3 mmol/L (0.7-2.1) H 10/08/17 14:00 FiO2 21.0 % 10/08/17 14:00 Sodium 142 mmol/l (132-148) 10/09/17 06:40 Potassium 3.4 MMOL/L (3.6-5.0) L 10/09/17 06:40 Chloride 105 mmol/L (98-107) 10/09/17 06:40 Carbon Dioxide 23 mmol/L (22-30) 10/09/17 06:40 Anion Gap 17 (10-20) 10/09/17 06:40 BUN 16 mg/dl (9-20) 10/09/17 06:40 Creatinine 1.4 mg/dl (0.8-1.5) 10/09/17 06:40 Est GFR ( Amer) > 60 10/09/17 06:40 Est GFR (Non-Af Amer) 52 10/09/17 06:40 Random Glucose 105 mg/dL (75-110) 10/09/17 06:40 Lactic Acid 1.0 MMOL/L (0.7-2.1) 10/08/17 17:39 Calcium 8.7 mg/dL (8.4-10.2) 10/09/17 06:40 Total Bilirubin 0.4 mg/dl (0.2-1.3) 10/09/17 06:40 AST 46 U/L (17-59) 10/09/17 06:40 ALT 43 U/L (21-72) 10/09/17 06:40 Alkaline Phosphatase 84 U/L (38-126) 10/09/17 06:40 Troponin I < 0.0120 ng/mL (0.00-0.120) 10/08/17 14:20 Total Protein 6.7 G/DL (6.3-8.2) 10/09/17 06:40 Albumin 3.5 g/dL (3.5-5.0) 10/09/17 06:40 Globulin 3.2 gm/dL (2.2-3.9) 10/09/17 06:40 Albumin/Globulin Ratio 1.1 (1.0-2.1) 10/09/17 06:40 Lipase 108 U/L (23-300) 10/08/17 14:20 Vitamin B12 371 pg/mL (239-931) 10/08/17 17:39 Venous Blood Potassium 3.9 mmol/L (3.6-5.2) 10/08/17 14:00 Urine Color [place] (YELLOW) 10/08/17 14:20 Urine Clarity Slighty-cloudy (Clear) 10/08/17 14:20 Urine pH 6.0 (5.0-8.0) 10/08/17 14:20 Ur Specific [place] 1.023 (1.003-1.030) 10/08/17 14:20 Urine Protein 100 mg/dL (NEGATIVE) 10/08/17 14:20 Urine Glucose (UA) Neg mg/dL (Normal) 10/08/17 14:20 Urine Ketones 20 mg/dL (NEGATIVE) 10/08/17 14:20 Urine Blood Negative (NEGATIVE) 10/08/17 14:20 Urine Nitrate Negative (NEGATIVE) 10/08/17 14:20 Urine Bilirubin Negative (NEGATIVE) 10/08/17 14:20 Urine Urobilinogen 2.0 mg/dL (0.2-1.0) 10/08/17 14:20 Ur Leukocyte Esterase Neg [place]/uL (Negative) 10/08/17 14:20 Urine RBC (Auto) 3 /hpf (0-3) 10/08/17 14:20 Urine Microscopic WBC 3 /hpf (0-5) 10/08/17 14:20 Ur Squamous Epith Cells < 1 /hpf (0-5) 10/08/17 14:20 Amorphous Sediment Few /ul (<OCC) H 10/08/17 14:20 Urine Bacteria Rare (<OCC) 10/08/17 14:20 Hyaline Casts >20 /hpf (0-2) H 10/08/17 14:20 Granular Casts (Auto) 1 /lpf (0-1) 10/08/17 14:20 Urine Opiates Screen Negative (NEGATIVE) 10/08/17 14:20 Urine Methadone Screen Negative (NEGATIVE) 10/08/17 14:20 Ur Barbiturates Screen Negative (NEGATIVE) 10/08/17 14:20 Ur Phencyclidine Scrn Negative (NEGATIVE) 10/08/17 14:20 Ur Amphetamines Screen Negative (NEGATIVE) 10/08/17 14:20 U Benzodiazepines Scrn Negative (NEGATIVE) 10/08/17 14:20 U Oth Cocaine Metabols Negative (NEGATIVE) 10/08/17 14:20 U Cannabinoids Screen Negative (NEGATIVE) 10/08/17 14:20 Alcohol, Quantitative < 10 mg/dl (0-10) 10/08/17 14:20 Discharge Exam - Head Exam Head Exam: NORMAL INSPECTION, NORMOCEPHALIC Discharge Plan - Follow Up Plan Condition: FAIR Disposition: HOME/ ROUTINE
--- NOTE | 2017-10-09 11:59 | CP.PCM.PN ---
Subjective - Date & Time of Evaluation Date of Evaluation: 10/09/17 Time of Evaluation: 08:10 - Subjective Subjective: Pt seen and examined at bedside. Reports improvement in symptoms. No diarrhea or vomiting overnight. Will advance diet as tolerated. Renal fxn improving. Objective - Vital Signs/Intake and Output Vital Signs (last 24 hours): Temp Pulse Resp BP Pulse Ox 97.3 F L 77 20 132/75 98 10/09/17 08:06 10/09/17 09:18 10/09/17 08:06 10/09/17 09:18 10/09/17 08:06 - Medications Medications: Current Medications Acetaminophen (Tylenol 325mg Tab) 650 mg PO Q6 PRN PRN Reason: Pain, Mild (1-3) Cyanocobalamin (Vitamin B12 1000 Mcg Tab) 1,000 mcg PO DAILY [facility] Last Admin: 10/09/17 09:17 Dose: 1,000 mcg Darunavir (Prezista) 800 mg PO DAILY [facility] PRN Reason: Protocol Dolutegravir Sodium (Tivicay) 50 mg PO DAILY [facility] PRN Reason: Protocol Fentanyl (Duragesic) 1 patch TD Q3D [facility] PRN Reason: Protocol Fluticasone Propionate (Flonase) 2 spr URPALI Q12 [facility] Last Admin: 10/09/17 09:19 Dose: 2 spr Folic Acid (Folic Acid) 1 mg PO DAILY [facility] Last Admin: 10/09/17 09:19 Dose: 1 mg Gabapentin (Neurontin) 600 mg PO DAILY [facility] Last Admin: 10/09/17 09:17 Dose: 600 mg Heparin Sodium (Porcine) (Heparin) 5,000 units SC Q8 [facility] PRN Reason: Protocol Last Admin: 10/09/17 09:19 Dose: 5,000 units Home Med (Emtricitabine/Tenofov Alafenam [Descovy 200-25 Mg Tablet]) 1 each PO DAILY [facility] Home Med (Patient's Own Medication) 100 unit PO DAILY [facility] Home Med (Valacyclovir [Valtrex]) 1 gm PO DAILY [facility] Hydrochlorothiazide (Microzide) 12.5 mg PO DAILY [facility] Last Admin: 10/09/17 09:18 Dose: 12.5 mg Dextrose/Lactated Ringer's (Dextrose 5%/Lactated Ringer's) 1,000 mls @ 125 mls/ hr IV .Q8H [facility] Stop: 10/09/17 17:19 Last Admin: 10/09/17 06:29 Dose: 125 mls/hr Ciprofloxacin (Cipro 400mg/200ml Dsw) 400 mg in 200 mls @ 200 mls/hr IVPB Q12 [facility] PRN Reason: Protocol Last Admin: 10/09/17 09:20 Dose: 200 mls/hr Metronidazole (Flagyl 500mg/100ml Ns) 100 mls @ 100 mls/hr IVPB Q8 [facility] PRN Reason: Protocol Last Admin: 10/09/17 09:20 Dose: 100 mls/hr Levothyroxine Sodium (Synthroid) 150 mcg PO DAILY@0630 [facility] Last Admin: 10/09/17 06:25 Dose: 150 mcg Lisinopril (Zestril) 10 mg PO DAILY [facility] Last Admin: 10/09/17 09:15 Dose: 10 mg Metoprolol Tartrate (Lopressor) 50 mg PO DAILY [facility] Last Admin: 10/09/17 09:18 Dose: 50 mg Mirtazapine (Remeron) 15 mg PO HS [facility] Last Admin: 10/08/17 21:32 Dose: 15 mg Morphine Sulfate (Morphine) 2 mg IVP Q4 PRN PRN Reason: Pain, severe (8-10) Morphine Sulfate (Morphine) 1 mg IVP Q4 PRN PRN Reason: Pain, moderate (4-7) Ondansetron HCl (Zofran Inj) 4 mg IVP Q6 PRN PRN Reason: Nausea/Vomiting Pantoprazole Sodium (Protonix Inj) 40 mg IVP DAILY [facility] Last Admin: 10/09/17 09:17 Dose: 40 mg Tamsulosin HCl (Flomax) 0.4 mg PO DAILY [facility] Last Admin: 10/09/17 09:20 Dose: 0.4 mg - Labs Labs: 10/09/17 06:40 10/09/17 06:40 - Constitutional Appears: No Acute Distress - Eye Exam Eye Exam: EOMI - Respiratory Exam Respiratory Exam: Clear to Ausculation Bilateral. absent: Wheezes - Cardiovascular Exam Cardiovascular Exam: +S1, +S2 - GI/Abdominal Exam GI & Abdominal Exam: Soft. absent: Tenderness - Extremities Exam Extremities Exam: absent: Calf Tenderness - Neurological Exam Neurological Exam: Alert, Awake, Oriented x3 - Psychiatric Exam Psychiatric exam: Normal Affect, Normal Mood - Skin Additional comments: Fentanyl patch on R posterior shoulder Assessment and Plan - Assessment and Plan (Free Text) Plan: 62 y/o man w/ pmh of HIV (not AIDS), HTN, hypothyroidism presents to the ED w/ nausea, vomiting, and diarrhea Plan: nausea/vomiting/diarrhea - most likely colitis - CT abdomen/pelvis w/o PO and IV contrast: circumferential mural thickening in the sigmoid colon - IVF D5 LR @ 125 mL/h - abx: cipro 400 mg IV Q12h; flagyl 500 mg IV Q8h; plan to PO x 7 days on d/c - zofran 4 mg IV Q6 prn - protonix 40 mg IV daily - f/u blood, urine, and stool cultures/studies for possible infectious causes - monitor for acute changes acute kidney injury - Cr 2.3 f/u: 1.3 - s/p IVF D5 LR @ 125 mL/h HIV; asymptomatic - not AIDS - CD4 06/2017: 528 - viral load 06/2017: <20 - c/w prevista, tivicay, descovy(NF), and norvir HTN - controlled w/ medication - c/w lisinopril and metroprolol tartrate hypothyroidism - c/w levothyroxine 150 mcg PO daily hypokalemia -K: 3.4 -kdur 20 -repeat K at 15:00 Pain management -verified on [facility]: prescribed Fentanyl patch 100 mcg x 72 hrs. prophylactic measures - DVT: heparin 5,000 units SC Q8 Discharge planning: - Advancing diet: liquid to PO. If tolerates without N/V may d/c with PO abx
[2017-10-09 14:07] LABS: FOLATE > 20.0 ng/mL
[2017-10-09 16:14] VITALS: RESP 20
[2017-10-09] MEDS ORDERED: Lactated Ringer's 1,000 ML IV SCH (18:00)
[2017-10-09 18:49] VITALS: TEMP 97.5
[2017-10-10] MEDS: metroNIDAZOLE 500mg/100ml NS 100 ML IVPB SCH (00:43)
[2017-10-10] MEDS ORDERED: Lactated Ringer's 1,000 ML IV SCH (04:45)
[2017-10-10] MEDS: Levothyroxine 150 MCG TAB PO SCH (06:09)
[2017-10-10 06:25] LABS: BASO % 0.8 % (0.0-2.0); EOS # 0.1 K/uL (0.0-0.7); EOS % 2.6 % (0.0-4.0); HEMOGLOBIN 10.3 g/dL (12.0-18.0); LYMPH # 2.2 K/uL (1.0-4.3); LYMPH % 44.7 % (20.0-40.0); MEAN CELL VOLUME 102.9 fl (80.0-94.0); MEAN CORPUSCULAR HEMOGLOBIN 35.2 pg (27.0-31.0); MEAN CORPUSCULAR HGB CONC 34.2 g/dL (33.0-37.0); MEAN PLATELET VOLUME 7.3 fl (7.2-11.7); MONO # 0.4 K/uL (0.0-0.8); NEUT # 2.1 K/uL (1.8-7.0); NEUT % 42.9 % (50.0-75.0); RBC 2.92 Mil/uL (4.40-5.90); RED CELL DISTRIBUTION WIDTH 14.7 % (11.5-14.5); WHITE BLOOD COUNT 4.8 K/uL (4.8-10.8)
[2017-10-10 06:36] LABS: ALB/GLOB RATIO 1.1 (1.0-2.1); ALBUMIN 3.3 g/dL (3.5-5.0); ALT/SGPT 42 U/L (21-72); AST/SGOT 33 U/L (17-59); BLOOD UREA NITROGEN 13 mg/dl (9-20); CALCIUM 8.8 mg/dL (8.4-10.2); GFR AFRICAN-AMERICAN > 60; GFR NON-AFRICAN AMERICAN > 60
--- NOTE | 2017-10-10 07:17 | CP.PCM.DIS ---
Provider - Provider Date of Admission: 10/09/17 19:08 Attending physician: Diya Morales MD Time Spent in preparation of Discharge (in minutes): 20 Diagnosis - Discharge Diagnosis (1) Colitis Status: Acute Hospital Course - Lab Results Lab Results: Micro Results 10/08/17 14:20 Blood Blood Culture - Preliminary NO GROWTH AFTER 24 HOURS Most Recent Lab Values WBC 4.8 K/uL (4.8-10.8) 10/10/17 06:05 RBC 2.92 Mil/uL (4.40-5.90) L 10/10/17 06:05 Hgb 10.3 g/dL (12.0-18.0) L 10/10/17 06:05 Hct 30.1 % (35.0-51.0) L 10/10/17 06:05 MCV 102.9 fl (80.0-94.0) H 10/10/17 06:05 MCH 35.2 pg (27.0-31.0) H 10/10/17 06:05 MCHC 34.2 g/dL (33.0-37.0) 10/10/17 06:05 RDW 14.7 % (11.5-14.5) H 10/10/17 06:05 Plt Count 345 K/uL (130-400) 10/10/17 06:05 MPV 7.3 fl (7.2-11.7) 10/10/17 06:05 Neut % (Auto) 42.9 % (50.0-75.0) L 10/10/17 06:05 Lymph % (Auto) 44.7 % (20.0-40.0) H 10/10/17 06:05 [place] % (Auto) 9.0 % (0.0-10.0) 10/10/17 06:05 Eos % (Auto) 2.6 % (0.0-4.0) 10/10/17 06:05 Baso % (Auto) 0.8 % (0.0-2.0) 10/10/17 06:05 Neut # (Auto) 2.1 K/uL (1.8-7.0) 10/10/17 06:05 Lymph # (Auto) 2.2 K/uL (1.0-4.3) 10/10/17 06:05 [place] # (Auto) 0.4 K/uL (0.0-0.8) 10/10/17 06:05 Eos # (Auto) 0.1 K/uL (0.0-0.7) 10/10/17 06:05 Baso # (Auto) 0.0 K/uL (0.0-0.2) 10/10/17 06:05 pO2 29 mm/Hg (30-55) L 10/08/17 14:00 VBG pH 7.33 (7.32-7.43) 10/08/17 14:00 VBG pCO2 43 mmHg (40-60) 10/08/17 14:00 VBG HCO3 21.1 mmol/L 10/08/17 14:00 VBG Total CO2 24.0 mmol/L (22-28) 10/08/17 14:00 VBG O2 Sat (Calc) 47.3 % (40-65) 10/08/17 14:00 VBG Base Excess -3.2 mmol/L (0.0-2.0) L 10/08/17 14:00 VBG Potassium 3.9 mmol/L (3.6-5.2) 10/08/17 14:00 Sodium 136.0 mmol/L (132-148) 10/08/17 14:00 Chloride 103.0 mmol/L (98-107) 10/08/17 14:00 Glucose 91 mg/dL (75-110) 10/08/17 14:00 Lactate 3.3 mmol/L (0.7-2.1) H 10/08/17 14:00 FiO2 21.0 % 10/08/17 14:00 Sodium 141 mmol/l (132-148) 10/10/17 06:05 Potassium 4.5 MMOL/L (3.6-5.0) 10/10/17 06:05 Chloride 105 mmol/L (98-107) 10/10/17 06:05 Carbon Dioxide 23 mmol/L (22-30) 10/10/17 06:05 Anion Gap 18 (10-20) 10/10/17 06:05 BUN 13 mg/dl (9-20) 10/10/17 06:05 Creatinine 1.0 mg/dl (0.8-1.5) 10/10/17 06:05 Est GFR ( Amer) > 60 10/10/17 06:05 Est GFR (Non-Af Amer) > 60 10/10/17 06:05 Random Glucose 104 mg/dL (75-110) 10/10/17 06:05 Lactic Acid 1.0 MMOL/L (0.7-2.1) 10/08/17 17:39 Calcium 8.8 mg/dL (8.4-10.2) 10/10/17 06:05 Total Bilirubin 0.3 mg/dl (0.2-1.3) 10/10/17 06:05 AST 33 U/L (17-59) 10/10/17 06:05 ALT 42 U/L (21-72) 10/10/17 06:05 Alkaline Phosphatase 79 U/L (38-126) 10/10/17 06:05 Troponin I < 0.0120 ng/mL (0.00-0.120) 10/08/17 14:20 Total Protein 6.4 G/DL (6.3-8.2) 10/10/17 06:05 Albumin 3.3 g/dL (3.5-5.0) L 10/10/17 06:05 Globulin 3.1 gm/dL (2.2-3.9) 10/10/17 06:05 Albumin/Globulin Ratio 1.1 (1.0-2.1) 10/10/17 06:05 Lipase 108 U/L (23-300) 10/08/17 14:20 Vitamin B12 371 pg/mL (239-931) 10/08/17 17:39 Folate > 20.0 ng/mL 10/08/17 17:39 Venous Blood Potassium 3.9 mmol/L (3.6-5.2) 10/08/17 14:00 Urine Color [place] (YELLOW) 10/08/17 14:20 Urine Clarity Slighty-cloudy (Clear) 10/08/17 14:20 Urine pH 6.0 (5.0-8.0) 10/08/17 14:20 Ur Specific [place] 1.023 (1.003-1.030) 10/08/17 14:20 Urine Protein 100 mg/dL (NEGATIVE) 10/08/17 14:20 Urine Glucose (UA) Neg mg/dL (Normal) 10/08/17 14:20 Urine Ketones 20 mg/dL (NEGATIVE) 10/08/17 14:20 Urine Blood Negative (NEGATIVE) 10/08/17 14:20 Urine Nitrate Negative (NEGATIVE) 10/08/17 14:20 Urine Bilirubin Negative (NEGATIVE) 10/08/17 14:20 Urine Urobilinogen 2.0 mg/dL (0.2-1.0) 10/08/17 14:20 Ur Leukocyte Esterase Neg Janey/uL (Negative) 10/08/17 14:20 Urine RBC (Auto) 3 /hpf (0-3) 10/08/17 14:20 Urine Microscopic WBC 3 /hpf (0-5) 10/08/17 14:20 Ur Squamous Epith Cells < 1 /hpf (0-5) 10/08/17 14:20 Amorphous Sediment Few /ul (<OCC) H 10/08/17 14:20 Urine Bacteria Rare (<OCC) 10/08/17 14:20 Hyaline Casts >20 /hpf (0-2) H 10/08/17 14:20 Granular Casts (Auto) 1 /lpf (0-1) 10/08/17 14:20 Stool Occult Blood Negative (NEGATIVE) 10/08/17 20:01 Stool Leukocytes, Qual Negative (NEGATIVE) 10/08/17 20:03 Urine Opiates Screen Negative (NEGATIVE) 10/08/17 14:20 Urine Methadone Screen Negative (NEGATIVE) 10/08/17 14:20 Ur Barbiturates Screen Negative (NEGATIVE) 10/08/17 14:20 Ur Phencyclidine Scrn Negative (NEGATIVE) 10/08/17 14:20 Ur Amphetamines Screen Negative (NEGATIVE) 10/08/17 14:20 U Benzodiazepines Scrn Negative (NEGATIVE) 10/08/17 14:20 U Oth Cocaine Metabols Negative (NEGATIVE) 10/08/17 14:20 U Cannabinoids Screen Negative (NEGATIVE) 10/08/17 14:20 Alcohol, Quantitative < 10 mg/dl (0-10) 10/08/17 14:20 - Hospital Course Hospital Course: 62 y/o man w/ pmh of HIV (not AIDS), HTN, hypothyroidism presents to the ED w/ nausea, vomiting, and diarrhea; Stable: advanced diet and tolerated. Episode of hypokalemia: treated. Resolution of presenting symptoms. Pt to f/u with Dr. Thapa on 10/13/2017 Discharge Exam - Head Exam Head Exam: NORMAL INSPECTION, NORMOCEPHALIC - Eye Exam Eye Exam: EOMI - Respiratory Exam Respiratory Exam: Clear to PA & Lateral, NORMAL BREATHING PATTERN. absent: Wheezes - Cardiovascular Exam Cardiovascular Exam: +S1, +S2 - GI/Abdominal Exam GI & Abdominal Exam: Normal Bowel Sounds, Soft. absent: Tenderness - Neurological Exam Neurological exam: Alert, CN II-XII Intact, Oriented x3 - Psychiatric Exam Psychiatric exam: Normal Affect, Normal Mood Discharge Plan - Discharge Medications Prescriptions: Ciprofloxacin [Cipro] 500 mg PO BID #14 tab Cyanocobalamin [Vitamin B12 1000 mcg Tab] 1,000 mcg PO DAILY #30 tab Darunavir [Prezista] 800 mg PO DAILY #30 tab Dolutegravir Sodium [Tivicay] 50 mg PO DAILY #30 tab Emtricitabine/Tenofov Alafenam [Descovy 200-25 mg Tablet] 1 each PO DAILY #30 tablet Famotidine [Pepcid] 20 mg PO DAILY PRN #6 tab PRN Reason: Pain Folic Acid 1 mg PO DAILY #30 tab Gabapentin [Neurontin] 600 mg PO DAILY #30 tab Levothyroxine [Synthroid] 150 mcg PO DAILY@0630 #30 tab Lisinopril [Zestril] 10 mg PO DAILY #30 tab Metoprolol Tartrate [Lopressor] 50 mg PO DAILY #30 tab Metronidazole [Flagyl] 500 mg PO BID #14 tablet Mirtazapine [Remeron] 15 mg PO HS #30 tab Omeprazole 20 mg PO DAILY #30 capsule. Ritonavir [Norvir] 100 mg PO DAILY #30 cap Tamsulosin [Flomax] 0.4 mg PO DAILY #30 cap valACYclovir [Valtrex] 1 gm PO DAILY #30 tab - Follow Up Plan Condition: FAIR Disposition: HOME/ ROUTINE Instructions: Kidney Failure, Diarrhea in Adolescents and Adults, Renal Failure Diet (DC), Acute Abdominal Pain (DC), Acute Abdominal Pain (GEN) Additional Instructions: follow up with primary MD 1 week Referrals: Brad Thapa MD [Family Provider] -
[2017-10-10 08:12] VITALS: BP 130/82; PULSE 64; O2SAT 99
[2017-10-10] MEDS: Ciprofloxacin 400mg/200ml D5W 400 MG/200 ML BAG IVPB SCH (08:26)
== END 2017-10-10 14:30 | disposition home or self-care (01) ==
LOC: H.ER 13:44 → H.ERHOLD 16:02 → H.MEDSURG1 17:32 → INTOOBSV 10-09 19:08 → OBSVTOIN 10-09 19:08
PROVIDERS: ADMIT Family Medicine Geriatric Medicine; ATTEND Family Medicine Geriatric Medicine
DX: K52.9 Noninfective gastroenteritis and colitis, unspecified (principal); N17.9 Acute kidney failure, unspecified; Z21 Asymptomatic human immunodeficiency virus [HIV] infection status; I10 Essential (primary) hypertension; Z86.011 Personal history of benign neoplasm of the brain; E03.9 Hypothyroidism, unspecified; F32.9 Major depressive disorder, single episode, unspecified; E78.00 Pure hypercholesterolemia, unspecified; E87.6 Hypokalemia; Z96.643 Presence of artificial hip joint, bilateral; M19.90 Unspecified osteoarthritis, unspecified site
CPT/HCPCS: 36415; 70450; 74176; 80053; 80320; 80324; 80345; 80346; 80349; 80353; 80358; 80361; 81003; 82607; 82746; 82803; 83605; 83690; 83992; 84132; 84484; 85025; 87040; 87045; 87086; 87177; 87209; 89055; 99284; C9113; G0328; G0378; J0744; J1644; J2270; J7040; J7120

== ENCOUNTER 2018-01-15 11:35 | Emergency (ER) | payer MEDICAID, OTHER ==
[2018-01-15 11:35] VITALS: BMI 28.8
--- NOTE | 2018-01-15 12:21 | ED PDOC ---
HPI: Back Time Seen by Provider: 01/15/18 11:50 Chief Complaint (Nursing): Back Pain Chief Complaint (Provider): back Pain History Per: Patient Additional Complaint(s): 62 yo male, PMH of HIV, HTN, high Cholesterol, presents to ED with complaints of lower back pain beginning yesterday. Pt reports pain is worse upon deep inspiration. Pt denies any cough or congestion, no fever or chills, no palpitations, nausea or vomiting. no injury or trauma. Reports the pain has become so severe he now has shortness of breath. Past Medical History Reviewed: Nursing Documentation, Vital Signs Vital Signs: Last Vital Signs Temp 98.4 F 01/15/18 11:48 Pulse 96 H 01/15/18 11:48 Resp 16 01/15/18 11:48 BP 137/80 01/15/18 11:48 Pulse Ox 97 01/15/18 11:48 - Medical History PMH: Anemia, Arthritis, Depression, HIV, HTN, Hypercholesterolemia, Hypothyroidism, Malignancy, Sexually Transmitted Disease (HIV) Denies: CHF, COPD, Chronic Kidney Disease, Rheumatoid Arthritis - Surgical History Surgical History: Appendectomy - Family History Family History: States: Unknown Family Hx, Hypertension - Social History Current smoker - smoking cessation education provided: No Alcohol: Social Drugs: Denies - Home Medications Home Medications: Ambulatory Orders Medication Instructions Recorded fentaNYL 100mcg/hr [Duragesic 1 patch TD Q72H 07/14/16 Patch 100mcg/hr] Fluticasone Nasal [Flonase] 2 spray IN Q12 10/08/17 Megestrol [Megace] 10 ml PO DAILY 10/08/17 Ciprofloxacin [Cipro] 500 mg PO BID #14 tab 10/10/17 Cyanocobalamin [Vitamin B12 1000 1,000 mcg PO DAILY #30 tab 10/10/17 mcg Tab] Darunavir [Prezista] 800 mg PO DAILY #30 tab 10/10/17 Dolutegravir Sodium [Tivicay] 50 mg PO DAILY #30 tab 10/10/17 Emtricitabine/Tenofov Alafenam 1 each PO DAILY #30 tablet 10/10/17 [Descovy 200-25 mg Tablet] Famotidine [Pepcid] 20 mg PO DAILY PRN #6 tab 10/10/17 Folic Acid 1 mg PO DAILY #30 tab 10/10/17 Gabapentin [Neurontin] 600 mg PO DAILY #30 tab 10/10/17 Levothyroxine [Synthroid] 150 mcg PO DAILY@0630 #30 tab 10/10/17 Lisinopril [Zestril] 10 mg PO DAILY #30 tab 10/10/17 Metoprolol Tartrate [Lopressor] 50 mg PO DAILY #30 tab 10/10/17 Metronidazole [Flagyl] 500 mg PO BID #14 tablet 10/10/17 Mirtazapine [Remeron] 15 mg PO HS #30 tab 10/10/17 Omeprazole 20 mg PO DAILY #30 capsule. 10/10/17 Ritonavir [Norvir] 100 mg PO DAILY #30 cap 10/10/17 Tamsulosin [Flomax] 0.4 mg PO DAILY #30 cap 10/10/17 valACYclovir [Valtrex] 1 gm PO DAILY #30 tab 10/10/17 Azithromycin [Zithromax] 500 mg PO DAILY #6 tab 01/15/18 - Allergies Allergies/Adverse Reactions: Allergies Allergy/AdvReac Type Severity Reaction Status Date / Time No Known Allergies Allergy Verified 12/29/16 12:32 Review of Systems ROS Statement: Except As Marked, All Systems Reviewed And Found Negative Cardiovascular: Positive for: Chest Pain Respiratory: Positive for: Shortness of Breath Physical Exam - Reviewed Nursing Documentation Reviewed: Yes Vital Signs Reviewed: Yes - Physical Exam Appears: Positive for: Well, Non-toxic, No Acute Distress Head Exam: Positive for: ATRAUMATIC, NORMAL INSPECTION, NORMOCEPHALIC Skin: Positive for: Normal Color, Warm, DRY Eye Exam: Positive for: EOMI, Normal appearance, PERRL ENT: Positive for: Normal ENT Inspection Neck: Positive for: Normal, Painless ROM Cardiovascular/Chest: Positive for: Regular Rate, Rhythm Respiratory: Positive for: CNT, Normal Breath Sounds Gastrointestinal/Abdominal: Positive for: Normal Exam, Soft Back: Positive for: Normal Inspection Extremity: Positive for: Normal ROM Neurologic/Psych: Positive for: Alert, Oriented - Laboratory Results Result Diagrams: 01/15/18 12:51 01/15/18 12:51 - ECG O2 Sat by Pulse Oximetry: 97 Medical Decision Making Medical Decision Making: Pt afebrile upon arrival P: 96 WBC 12.0 Lactate 1.3 CXR: Small RUL infiltrate, as read by PA-C IV Rocpehin and Zithro administered. CTA: No pulmonary embolism. Right lower lobe pneumonia in the appropriate clinical scenario. Recommend followup to document resolution. Pt educated on all results and demonstrated full understanding. Pt offered observation and declined. Pt requesting to go home. will follow up with PMD, Dr. Thapa. Case discussed with ED MD, Dr. Carter, who agrees Pts table for trial on outpt treatment at this time. Disposition - Clinical Impression Clinical Impression: Pneumonia - Patient ED Disposition Is Patient to be Admitted: No - Disposition Disposition: Routine/Home Disposition Time: 02:00 Condition: STABLE Prescriptions: Azithromycin [Zithromax] 500 mg PO DAILY #6 tab Instructions: Community-Acquired Pneumonia in Adults Forms: [facility] (Sami)
[2018-01-15] MEDS ORDERED: Albuterol-Ipratrop 3 mg / 0.5 (3 ml) UD INH STA (12:22)
[2018-01-15 13:19] LABS: BASO % 0.3 % (0.0-2.0); EOS # 0.1 K/uL (0.0-0.7); EOS % 0.6 % (0.0-4.0); HEMOGLOBIN 11.3 g/dL (12.0-18.0); LYMPH # 1.5 K/uL (1.0-4.3); LYMPH % 12.8 % (20.0-40.0); MEAN CELL VOLUME 102.3 fl (80.0-94.0); MEAN CORPUSCULAR HEMOGLOBIN 34.6 pg (27.0-31.0); MEAN CORPUSCULAR HGB CONC 33.8 g/dL (33.0-37.0); MEAN PLATELET VOLUME 7.7 fl (7.2-11.7); MONO # 0.8 K/uL (0.0-0.8); MONO % 6.8 % (0.0-10.0); NEUT # 9.6 K/uL (1.8-7.0); NEUT % 79.5 % (50.0-75.0); RBC 3.27 Mil/uL (4.40-5.90); RED CELL DISTRIBUTION WIDTH 14.4 % (11.5-14.5)
[2018-01-15] MEDS ORDERED: Albuterol-Ipratrop 3 mg / 0.5 (3 ml) UD ONE (13:21)
[2018-01-15 13:22] LABS: INR 1.2; PROTHROMBIN TIME 13.2 Seconds (9.8-13.1)
[2018-01-15 13:25] LABS: PARTIAL THROMBOPLASTIN TIME 25.9 Seconds (25.6-37.1)
[2018-01-15 13:30] LABS: ALB/GLOB RATIO 1.2 (1.0-2.1); ALBUMIN 4.1 g/dL (3.5-5.0); ALT/SGPT 27 U/L (21-72); AST/SGOT 30 U/L (17-59); BLOOD UREA NITROGEN 9 mg/dl (9-20); GFR AFRICAN-AMERICAN > 60; GFR NON-AFRICAN AMERICAN > 60
[2018-01-15 13:39] LABS: BARBITURATES, UR NEGATIVE (NEGATIVE); BENZODIAZEPINES, UR NEGATIVE (NEGATIVE); OPIATES, UR NEGATIVE (NEGATIVE); PHENCYCLIDINE, UR NEGATIVE (NEGATIVE)
[2018-01-15 13:40] LABS: B-TYPE NATRIURETIC PEPTIDE 104 pg/ml (0-900); SQUAMOUS EPITHIAL < 1 /hpf (0-5); URINE BILIRUBIN NEGATIVE (NEGATIVE); URINE BLOOD MODERATE (NEGATIVE); URINE CLARITY CLEAR (Clear); URINE COLOR YELLOW (YELLOW); URINE GLUCOSE (UA) NEG (Normal); URINE LEUKOCYTE ESTERASE NEG Leu/uL (Negative); URINE PROTEIN 30 mg/dL (NEGATIVE)
--- NOTE | 2018-01-15 14:08 | CARD ---
APPROVED REPORT Date of service: 01/15/2018 <Conclusion> Normal sinus rhythm Right bundle branch block Abnormal ECG
--- NOTE | 2018-01-15 15:39 | RAD ---
Date of service: 01/15/2018 HISTORY: sob COMPARISON: No prior. TECHNIQUE: Chest PA and lateral FINDINGS: LUNGS: Small right lower lobe infiltrate. PLEURA: No significant pleural effusion identified. No pneumothorax apparent. CARDIOVASCULAR: Normal. OSSEOUS STRUCTURES: No significant abnormalities. VISUALIZED UPPER ABDOMEN: Normal. OTHER FINDINGS: None. IMPRESSION: Small right lower lobe infiltrate.
[2018-01-15] MEDS ORDERED: Sodium Chloride 0.9% 100 ML ONE (17:04)
[2018-01-15] MEDS ORDERED: Iodixanol 320 MG/ML 100 ML BOTTLE IV ONE (17:04)
[2018-01-15] MEDS ORDERED: Azithromycin 500 MG in Sodium Chloride 0.9% 250 ML IVPB STA (18:31)
[2018-01-15] MEDS ORDERED: Azithromycin 500 MG IV IVPB ONE (18:45)
[2018-01-15 19:21] LABS: VENOUS BLOOD GAS BASE EXCESS -1.8 mmol/L (0.0-2.0); VENOUS BLOOD GAS PCO2 34 mmHg (40-60); VENOUS BLOOD GAS PO2 36 mm/Hg (30-55); VENOUS BLOOD PH 7.42 (7.32-7.43)
[2018-01-15] MEDS ORDERED: cefTRIAXone (Rocephin) 1 gm Inj ONE (19:58)
[2018-01-15 21:26] VITALS: BP 118/78; PULSE 86; RESP 18; TEMP 98.2
--- NOTE | 2018-01-16 10:24 | CT ---
Date of service: 01/15/2018 PROCEDURE: CT Chest with contrast (Pulmonary Angiogram) HISTORY: SOB r/o PE COMPARISON: Chest CT without contrast 11/16/2017. TECHNIQUE: Axial computed tomography images were obtained of the chest in the pulmonary arterial phase of enhancement. Coronal and sagittal reformatted images were created and reviewed. Intravenous contrast dose: Visipaque 320, 95 cc Radiation dose: Total exam DLP = 292.17 mGy-cm. This CT exam was performed using one or more of the following dose reduction techniques: Automated exposure control, adjustment of the mA and/or kV according to patient size, and/or use of iterative reconstruction technique. FINDINGS: PULMONARY ARTERIES: Unremarkable. No pulmonary embolism. AORTA: Mild dilatation of the ascending thoracic aorta is appreciated up to 4.1 cm greatest diameter with remaining aorta unremarkable in the chest. LUNGS: Bilateral dependent atelectasis favored over alveolitis, right greater than left. Underlying limited alveolitis not completely excluded at the right side nevertheless. Trace emphysematous changes are appreciated bilaterally in the upper lobes. Central airways appear clear. PLEURAL SPACES: Unremarkable. No effusion or pneumothorax. HEART: Unremarkable. No cardiomegaly. No significant pericardial effusion. LYMPH NODES: No lymphadenopathy. BONES, CHEST WALL: Unremarkable. No fracture or destructive lesion OTHER FINDINGS: Stable tiny lucencies left lobe liver posteriorly. Bilateral adrenal gland calcifications reiterated. IMPRESSION: 1. No definite pulmonary embolism by standard CT criteria. 2. Bilateral basilar dependent atelectasis with underlying right lower lobe airspace disease not excluded. 3. No pleural or pericardial effusion or pneumothorax. 4. Stable partially calcified mass 3.2 x 3.4 cm at the left subclavian/axillary regions superficial to the sub scapularis muscle and posterior inferior to the left subclavian/axillary arteriovenous complex. 5. Incidental stable lucencies left lobe liver as well as partially calcified bilateral adrenal glands. Discordant preliminary report from [facility], 01/15/2018.
[2018-01-27 19:39] VITALS: O2SAT 97
== END 2018-01-15 21:45 | disposition home or self-care (01) ==
LOC: H.ER 11:35
DX: J18.9 Pneumonia, unspecified organism (principal); Z86.59 Personal history of other mental and behavioral disorders; B20 Human immunodeficiency virus [HIV] disease; I10 Essential (primary) hypertension; E78.00 Pure hypercholesterolemia, unspecified; E03.9 Hypothyroidism, unspecified
CPT/HCPCS: 71046; 71275; 80053; 80324; 80345; 80346; 80349; 80353; 80358; 80361; 81003; 82803; 82948; 83880; 83992; 84443; 84484; 85025; 85378; 85610; 85730; 87040; 93005; 94640; 96365; 96367; 96375; 99285; J0456; J0696; J2270; J2930; J7050; Q9967

== ENCOUNTER 2018-02-10 22:21 | Emergency (ER) | payer MEDICAID ==
[2018-02-10 22:21] VITALS: BMI 28.8
--- NOTE | 2018-02-10 23:15 | ED PDOC ---
HPI: Abdomen Time Seen by Provider: 02/10/18 22:43 Chief Complaint (Nursing): Abdominal Pain Chief Complaint (Provider): Abdominal Pain History Per: Patient History/Exam Limitations: no limitations Onset/Duration Of Symptoms: Days (x2) Current Symptoms Are (Timing): Still Present Additional Complaint(s): 62 year old male with a pmhx of HIV, gastritis, GERD, and BPH, presents to the ED for evaluation of abdominal pain. Patient states that for the past two days, he has had epigastric pain consistent with previous episodes of GERD and gastritis, describing an acidic sensation in his chest and throat, associated with two episodes of red tinged vomit. Otherwise, he denies fever, diarrhea, cough, shortness of breath, and chest pain. PMD: none provided Past Medical History Reviewed: Historical Data, Nursing Documentation, Vital Signs Vital Signs: Last Vital Signs Temp 98.4 F 02/10/18 22:28 Pulse 72 02/11/18 04:06 Resp 16 02/11/18 04:06 BP 132/80 02/11/18 04:06 Pulse Ox 99 02/11/18 04:06 - Medical History PMH: Anemia, Arthritis, Depression, Gastritis, GERD, HIV, HTN, Hypercholesterolemia, Hypothyroidism, Malignancy, Sexually Transmitted Disease ( HIV) Denies: CHF, COPD, Chronic Kidney Disease, Rheumatoid Arthritis - Surgical History Surgical History: Appendectomy - Family History Family History: States: Hypertension - Social History Current smoker - smoking cessation education provided: No Alcohol: None Drugs: Denies - Home Medications Home Medications: Ambulatory Orders Medication Instructions Recorded fentaNYL 100mcg/hr [Duragesic 1 patch TD Q72H 07/14/16 Patch 100mcg/hr] Fluticasone Nasal [Flonase] 2 spray IN Q12 10/08/17 Megestrol [Megace] 10 ml PO DAILY 10/08/17 Ciprofloxacin [Cipro] 500 mg PO BID #14 tab 10/10/17 Cyanocobalamin [Vitamin B12 1000 1,000 mcg PO DAILY #30 tab 10/10/17 mcg Tab] Darunavir [Prezista] 800 mg PO DAILY #30 tab 10/10/17 Dolutegravir Sodium [Tivicay] 50 mg PO DAILY #30 tab 10/10/17 Emtricitabine/Tenofov Alafenam 1 each PO DAILY #30 tablet 10/10/17 [Descovy 200-25 mg Tablet] Famotidine [Pepcid] 20 mg PO DAILY PRN #6 tab 10/10/17 Folic Acid 1 mg PO DAILY #30 tab 10/10/17 Gabapentin [Neurontin] 600 mg PO DAILY #30 tab 10/10/17 Levothyroxine [Synthroid] 150 mcg PO DAILY@0630 #30 tab 10/10/17 Lisinopril [Zestril] 10 mg PO DAILY #30 tab 10/10/17 Metoprolol Tartrate [Lopressor] 50 mg PO DAILY #30 tab 10/10/17 Metronidazole [Flagyl] 500 mg PO BID #14 tablet 10/10/17 Mirtazapine [Remeron] 15 mg PO HS #30 tab 10/10/17 Omeprazole 20 mg PO DAILY #30 capsule. 10/10/17 Ritonavir [Norvir] 100 mg PO DAILY #30 cap 10/10/17 Tamsulosin [Flomax] 0.4 mg PO DAILY #30 cap 10/10/17 valACYclovir [Valtrex] 1 gm PO DAILY #30 tab 10/10/17 Azithromycin [Zithromax] 500 mg PO DAILY #6 tab 01/15/18 Esomeprazole Magnesium [Nexium] 20 mg PO QAM #14 ecc 02/11/18 - Allergies Allergies/Adverse Reactions: Allergies Allergy/AdvReac Type Severity Reaction Status Date / Time No Known Allergies Allergy Verified 12/29/16 12:32 Review of Systems ROS Statement: Except As Marked, All Systems Reviewed And Found Negative Constitutional: Negative for: Fever Cardiovascular: Negative for: Chest Pain Respiratory: Negative for: Cough, Shortness of Breath Gastrointestinal: Positive for: Vomiting (x2 episodes with mild red tinge), Abdominal Pain (epigastric consistent with previous episodes of GERD and gastritis). Negative for: Diarrhea Physical Exam - Reviewed Nursing Documentation Reviewed: Yes Vital Signs Reviewed: Yes - Physical Exam Appears: Positive for: No Acute Distress Head Exam: Positive for: ATRAUMATIC, NORMOCEPHALIC Skin: Positive for: Normal Color, Warm, Dry Eye Exam: Positive for: Normal appearance ENT: Positive for: Normal ENT Inspection Neck: Positive for: Normal, Painless ROM, Supple Cardiovascular/Chest: Positive for: Regular Rate, Rhythm Respiratory: Positive for: Normal Breath Sounds. Negative for: Accessory Muscle Use, Respiratory Distress Gastrointestinal/Abdominal: Positive for: Tenderness (mild epigastric) Back: Positive for: Normal Inspection Neurologic/Psych: Positive for: Alert, Oriented (x3) - Laboratory Results Result Diagrams: 02/10/18 23:50 02/11/18 03:05 - ECG O2 Sat by Pulse Oximetry: 98 (RA) Pulse Ox Interpretation: Normal Medical Decision Making Medical Decision Making: Time: 2250 Initial Impression: 62 year old male presenting with epigastric pain with known hx of GERD and gastritis Initial Plan: --EKG --CMP --Trop I --Urine dipstick --CBC with differential --Normal saline IV --Zofran Inj 4mg IV --Protonix Inj 80mg IV --Urinalysis 0410 Labs reviewed and show no clinically significant abnormalities. Patient reports improvement in symptoms, and is stable for d/c diagnosed with gastritis. All questions answered at this time. Scribe Attestation: Documented by Catherine Bae, acting as a scribe for Bruce Swanson MD. Provider Scribe Attestation: All medical record entries made by the Scribe were at my direction and personally dictated by me. I have reviewed the chart and agree that the record accurately reflects my personal performance of the history, physical exam, medical decision making, and the department course for this patient. I have also personally directed, reviewed, and agree with the discharge instructions and disposition. Disposition - Clinical Impression Clinical Impression: Gastritis - Patient ED Disposition Is Patient to be Admitted: No Counseled Patient/Family Regarding: Studies Performed, Diagnosis - Disposition Disposition: Routine/Home Disposition Time: 04:12 Condition: STABLE Prescriptions: Esomeprazole Magnesium [Nexium] 20 mg PO QAM #14 ecc Instructions: Gastritis Forms: [employer] (Lao) Print Language: GHANAIAN
[2018-02-11 00:07] LABS: BASO # 0.1 K/uL (0.0-0.2); BASO % 0.8 % (0.0-2.0); EOS % 0.5 % (0.0-4.0); HEMOGLOBIN 10.7 g/dL (12.0-18.0); LYMPH % 32.3 % (20.0-40.0); MEAN CELL VOLUME 102.5 fl (80.0-94.0); MEAN CORPUSCULAR HEMOGLOBIN 35.2 pg (27.0-31.0); MEAN CORPUSCULAR HGB CONC 34.3 g/dL (33.0-37.0); MEAN PLATELET VOLUME 7.6 fl (7.2-11.7); MONO # 0.9 K/uL (0.0-0.8); MONO % 9.3 % (0.0-10.0); NEUT # 5.3 K/uL (1.8-7.0); NEUT % 57.1 % (50.0-75.0); NRBC % 0.1 % (0.0-0.0); RBC 3.04 Mil/uL (4.40-5.90); RED CELL DISTRIBUTION WIDTH 14.9 % (11.5-14.5); WHITE BLOOD COUNT 9.3 K/uL (4.8-10.8)
[2018-02-11 00:17] LABS: ALB/GLOB RATIO 1.2 (1.0-2.1); ALBUMIN 3.6 g/dL (3.5-5.0); ALT/SGPT 25 U/L (21-72); AST/SGOT 41 U/L (17-59); BLOOD UREA NITROGEN 22 mg/dl (9-20); CALCIUM 8.7 mg/dL (8.4-10.2); GFR NON-AFRICAN AMERICAN > 60; LIPASE 141 U/L (23-300)
[2018-02-11] MEDS: Sodium Chloride 0.9% 1,000 ML IV STA (00:26)
[2018-02-11 00:48] LABS: SQUAMOUS EPITHIAL < 1 /hpf (0-5); URINE BILIRUBIN NEGATIVE (NEGATIVE); URINE BLOOD SMALL (NEGATIVE); URINE CLARITY CLEAR (Clear); URINE COLOR YELLOW (YELLOW); URINE GLUCOSE (UA) 150 mg/dL (Normal); URINE LEUKOCYTE ESTERASE NEG Leu/uL (Negative); URINE PROTEIN NEGATIVE (NEGATIVE); URINE UROBILINOGEN 0.2-1.0 mg/dL (0.2-1.0)
[2018-02-11 04:07] VITALS: BP 132/80; RESP 16
[2018-02-11 04:17] VITALS: PULSE 76; TEMP 97.4; O2SAT 99
--- NOTE | 2018-02-11 09:15 | CARD ---
APPROVED REPORT Date of service: 02/11/2018 EKG Measurement Heart [id number] <Conclusion> Normal sinus rhythm Right bundle branch block Abnormal ECG
== END 2018-02-11 04:17 | disposition home or self-care (01) ==
LOC: H.ER 22:21
DX: K29.70 Gastritis, unspecified, without bleeding (principal); K21.9 Gastro-esophageal reflux disease without esophagitis; B20 Human immunodeficiency virus [HIV] disease; E03.9 Hypothyroidism, unspecified; E78.00 Pure hypercholesterolemia, unspecified; I10 Essential (primary) hypertension
CPT/HCPCS: 80053; 81003; 83690; 84132; 84484; 85025; 93005; 96360; 99284; C9113; J2405; J7030

== ENCOUNTER 2018-06-09 13:07 | Emergency (ER) | payer OTHER ==
[2018-06-09 13:08] VITALS: BMI 28.8
[2018-06-09] MEDS ORDERED: Sodium Chloride 0.9% 1,000 ML IV STA (13:45)
[2018-06-09] MEDS ORDERED: Iohexol 240 (50 ml) PO ONE (13:45)
--- NOTE | 2018-06-09 13:48 | ED PDOC ---
HPI: Abdomen Time Seen by Provider: 06/09/18 13:47 Chief Complaint (Nursing): GI Problem Chief Complaint (Provider): ABDOMINAL PAIN/DIARRHEA History Per: Patient (62 Y/O MALE H/O HIV LAST CD4 COUNT APPROX 500 HERE WITH DIARRHEA MULTIPLE EPISODES X 2 WEEKS ASSOCIATED WITH VOMITING AND LOWER ABDOMINAL PAIN. DENIES ANY OUTSIDE TRAVEL. NOTES URI/COUGH.) Past Medical History Reviewed: Historical Data, Nursing Documentation, Vital Signs Vital Signs: Last Vital Signs Temp 98.7 F 06/09/18 13:33 Pulse 107 H 06/09/18 13:33 Resp 20 06/09/18 13:33 BP 136/93 H 06/09/18 13:33 Pulse Ox 99 06/09/18 13:33 - Medical History PMH: Anemia, Arthritis, Depression, Gastritis, GERD, HIV, HTN, Hypercholesterolemia, Hypothyroidism, Malignancy, Sexually Transmitted Disease (HIV) Denies: CHF, COPD, Chronic Kidney Disease, Rheumatoid Arthritis - Surgical History Surgical History: Appendectomy - Family History Family History: States: Unknown Family Hx, Hypertension - Home Medications Home Medications: Ambulatory Orders Medication Instructions Recorded fentaNYL 100mcg/hr [Duragesic 1 patch TD Q72H 07/14/16 Patch 100mcg/hr] Fluticasone Nasal [Flonase] 2 spray IN Q12 10/08/17 Megestrol [Megace] 10 ml PO DAILY 10/08/17 Ciprofloxacin [Cipro] 500 mg PO BID #14 tab 10/10/17 Cyanocobalamin [Vitamin B12 1000 1,000 mcg PO DAILY #30 tab 10/10/17 mcg Tab] Darunavir [Prezista] 800 mg PO DAILY #30 tab 10/10/17 Dolutegravir Sodium [Tivicay] 50 mg PO DAILY #30 tab 10/10/17 Emtricitabine/Tenofov Alafenam 1 each PO DAILY #30 tablet 10/10/17 [Descovy 200-25 mg Tablet] Famotidine [Pepcid] 20 mg PO DAILY PRN #6 tab 10/10/17 Folic Acid 1 mg PO DAILY #30 tab 10/10/17 Gabapentin [Neurontin] 600 mg PO DAILY #30 tab 10/10/17 Levothyroxine [Synthroid] 150 mcg PO DAILY@0630 #30 tab 10/10/17 Lisinopril [Zestril] 10 mg PO DAILY #30 tab 10/10/17 Metoprolol Tartrate [Lopressor] 50 mg PO DAILY #30 tab 10/10/17 Metronidazole [Flagyl] 500 mg PO BID #14 tablet 10/10/17 Mirtazapine [Remeron] 15 mg PO HS #30 tab 10/10/17 Omeprazole 20 mg PO DAILY #30 capsule. 10/10/17 Ritonavir [Norvir] 100 mg PO DAILY #30 cap 10/10/17 Tamsulosin [Flomax] 0.4 mg PO DAILY #30 cap 10/10/17 valACYclovir [Valtrex] 1 gm PO DAILY #30 tab 10/10/17 Azithromycin [Zithromax] 500 mg PO DAILY #6 tab 01/15/18 Esomeprazole Magnesium [Nexium] 20 mg PO QAM #14 ecc 02/11/18 Famotidine [Pepcid] 20 mg PO BID #10 tab 06/09/18 - Allergies Allergies/Adverse Reactions: Allergies Allergy/AdvReac Type Severity Reaction Status Date / Time No Known Allergies Allergy Verified 06/09/18 13:33 Review of Systems ROS Statement: Except As Marked, All Systems Reviewed And Found Negative Physical Exam - Reviewed Nursing Documentation Reviewed: Yes Vital Signs Reviewed: Yes - Physical Exam Appears: Positive for: Well, Non-toxic, No Acute Distress Head Exam: Positive for: ATRAUMATIC, NORMAL INSPECTION, NORMOCEPHALIC Skin: Positive for: Normal Color, Warm, DRY Eye Exam: Positive for: EOMI, Normal appearance, PERRL ENT: Positive for: Normal ENT Inspection Neck: Positive for: Normal, Painless ROM Cardiovascular/Chest: Positive for: Regular Rate, Rhythm Respiratory: Positive for: CNT, Normal Breath Sounds Gastrointestinal/Abdominal: Positive for: Normal Exam, Soft, Tenderness (MILD BILATERAL LOWER TENDERNESS) Back: Positive for: Normal Inspection Extremity: Positive for: Normal ROM Neurologic/Psych: Positive for: Alert, Oriented - Laboratory Results Result Diagrams: 06/09/18 15:20 06/09/18 15:20 - ECG O2 Sat by Pulse Oximetry: 99 - Progress ED Course And Treament: CT ABD/PELVIS: IMPRESSION: Mild hepatomegaly with fatty infiltration. There are multiple low-attenuation foci scattered throughout the left lobes of liver 2 largest of which likely represent small cysts. Continued follow-up recommended to assess stability. Partially collapsed slightly thick-walled appearing gallbladder however no definitive evidence of intraluminal gallbladder calculi. Clinical correlation recommended. Stable appearing large left and smaller right-sided adrenal masses which exhibit internal calcifications. Urinary bladder is partially obscured by streak and beam hardening artifact arising from bilateral total hip replacements. The visualized portions of the urinary bladder exhibits wall thickening possibly due to incomplete distention and muscular hypertrophy however cystitis or other intrinsic/invasive wall lesion not excluded. Thick-walled stomach with a prominent rugal folds likely in part due to incomplete distention however gastritis or other intrinsic/invasive wall lesion not excluded. Clinical correlation recommended. There is fluid seen within of portions of the right colon; rule out diarrheal illness. Few scattered colonic diverticula without radiographic evidence of acute diverticulitis. URINALYSIS WNL PATIENT WITH NONTENDER ABDOMEN. EATING IN ED WITHOUT DIFFICULTY. ADVISED F/U WITH PMD. Disposition - Clinical Impression Clinical Impression: Gastroenteritis - Patient ED Disposition Is Patient to be Admitted: No - Disposition Disposition: Routine/Home Disposition Time: 19:07 Condition: FAIR Prescriptions: Famotidine [Pepcid] 20 mg PO BID #10 tab Instructions: Viral Gastroenteritis Print Language: OCCITAN
[2018-06-09 14:36] LABS: VENOUS BLOOD GAS BASE EXCESS -4.5 mmol/L (0.0-2.0); VENOUS BLOOD GAS PCO2 36 mmHg (40-60); VENOUS BLOOD GAS PO2 29 mm/Hg (30-55); VENOUS BLOOD PH 7.36 (7.32-7.43)
[2018-06-09 15:51] LABS: BASO # 0.1 K/uL (0.0-0.2); BASO % 0.7 % (0.0-2.0); EOS # 0.2 K/uL (0.0-0.7); EOS % 1.6 % (0.0-4.0); HEMOGLOBIN 11.2 g/dL (12.0-18.0); LYMPH # 2.5 K/uL (1.0-4.3); LYMPH % 22.9 % (20.0-40.0); MEAN CELL VOLUME 102.9 fl (80.0-94.0); MONO # 0.8 K/uL (0.0-0.8); MONO % 7.1 % (0.0-10.0); NEUT # 7.4 K/uL (1.8-7.0); NEUT % 67.7 % (50.0-75.0); NRBC % 0.1 % (0.0-0.0); RBC 3.22 Mil/uL (4.40-5.90); RED CELL DISTRIBUTION WIDTH 13.8 % (11.5-14.5); WHITE BLOOD COUNT 10.8 K/uL (4.8-10.8)
[2018-06-09 15:54] LABS: ALB/GLOB RATIO 1.2 (1.0-2.1); ALBUMIN 4.1 g/dL (3.5-5.0); ALT/SGPT 21 U/L (21-72); AST/SGOT 34 U/L (17-59); BLOOD UREA NITROGEN 14 mg/dl (9-20); CALCIUM 9.4 mg/dL (8.4-10.2); GFR NON-AFRICAN AMERICAN > 60; LIPASE 68 U/L (23-300)
[2018-06-09] MEDS ORDERED: Iohexol 300 100 ML IJ ONE (16:01)
[2018-06-09] MEDS ORDERED: Sodium Chloride 0.9% 50 ML IV ONE (16:01)
--- NOTE | 2018-06-09 17:41 | CT ---
Date of service: 06/09/2018 PROCEDURE: CT Abdomen and Pelvis. HISTORY: ABD PAIN COMPARISON: None. TECHNIQUE: Contiguous axial images of the abdomen and pelvis performed following of oral and intravenous injection of approximately 95 cc Omnipaque 300 contrast material. Additional 2D sagittal and coronal reformats generated. Comparison made with prior CT scan of the abdomen and pelvis 10/08/2017. Radiation dose: Total exam DLP = 588.37 mGy-cm. This CT exam was performed using one or more of the following dose reduction techniques: Automated exposure control, adjustment of the mA and/or kV according to patient size, and/or use of iterative reconstruction technique. FINDINGS: LOWER THORAX: Lung base clear. No infiltrate effusion or basilar pneumothorax. Heart size is within range of normal. No significant pericardial effusion. LIVER: Liver is mildly enlarged measuring nearly 19 cm in CC dimension.. Mild fatty hepatic infiltration. Several small low-attenuation foci again seen left lobe liver the largest measuring approximately 10.4 mm exhibiting Hounsfield units in the negative single digits consistent with small cyst. Second smaller focus slightly more anterolateral and superiorly located exhibits Hounsfield units in the negative low single digits also probably representing cyst. Several other tiny foci left lobe are not well delineated in too small to characterize. Followup at interval recommended to assess stability. Portal and splenic veins are opacified. GALLBLADDER AND BILE DUCTS: Gallbladder is incompletely distended which presumably accounts for thick-walled appearance. Inflammatory process of the gallbladder not completely excluded PANCREAS: Pancreas remains slightly atrophic. There are no pancreatic masses collections or calcifications. SPLEEN: Spleen exhibits relatively normal size and attenuation pattern without masses collections or calcifications.. ADRENALS: Redemonstrated are bilateral adrenal gland masses left larger than right. Numerous coarse calcifications are present within the left and to a lesser degree right adrenal gland unchanged from prior exam. KIDNEYS AND URETERS: Kidneys demonstrate symmetric nephrograms. No evidence of nephrolithiasis or hydronephrosis. BLADDER: The urinary bladder is incompletely visualized due to streak and beam hardening artifact arising from bilateral total hip replacements. The superior urinary bladder wall is thickened which could be in part due to incomplete distension and muscular hypertrophy however the possibility of cystitis or other intrinsic/invasive wall lesion not excluded. Correlation with urinalysis recommended. REPRODUCTIVE: Prostate gland is obscured by streak and beam hardening artifact arising from bilateral total hip replacements APPENDIX: Unremarkable. BOWEL: Evaluation of the bowel is somewhat limited due to incomplete opacification. The stomach is incompletely distended which presumably in part accounts for thick-walled appearance. Prominent rugal folds may be also due to incomplete distention however gastritis versus other intrinsic/invasive wall lesion not excluded. Consider followup endoscopy if in clinically indicated. Visualized loops of small bowel exhibit normal contour and caliber. No evidence of acute mechanical small bowel obstruction. Fluid seen within the right colon possibly secondary to a diarrheal illness. There does appear to be a few scattered colonic diverticula along the sigmoid colon however no radiographic evidence of acute diverticulitis. Note also that there is a short segment of the sigmoid colon that is obscured by streak and beam hardening artifact PERITONEUM: Unremarkable. No fluid collection. No free air. LYMPH NODES: Unremarkable. Evaluation for pelvic adenopathy is limited due to streak and beam hardening artifact arising from bilateral total hip replacements. VASCULATURE: Unremarkable. No aortic aneurysm. Mild aortic atherosclerotic calcification or mural plaque present. BONES: Bilateral total hip replacements result in fairly significant crossing streak and beam hardening artifact obscuring detail in the lower pelvis particularly the inferior margin of the urinary bladder and prostate gland as well as lower sigmoid colon. Minor multilevel degenerative spondylosis of the lower thoracic and lumbar spine. OTHER FINDINGS: None. IMPRESSION: Mild hepatomegaly with fatty infiltration. There are multiple low-attenuation foci scattered throughout the left lobes of liver 2 largest of which likely represent small cysts. Continued follow-up recommended to assess stability. Partially collapsed slightly thick-walled appearing gallbladder however no definitive evidence of intraluminal gallbladder calculi. Clinical correlation recommended. Stable appearing large left and smaller right-sided adrenal masses which exhibit internal calcifications. Urinary bladder is partially obscured by streak and beam hardening artifact arising from bilateral total hip replacements. The visualized portions of the urinary bladder exhibits wall thickening possibly due to incomplete distention and muscular hypertrophy however cystitis or other intrinsic/invasive wall lesion not excluded. Thick-walled stomach with a prominent rugal folds likely in part due to incomplete distention however gastritis or other intrinsic/invasive wall lesion not excluded. Clinical correlation recommended. There is fluid seen within of portions of the right colon; rule out diarrheal illness. Few scattered colonic diverticula without radiographic evidence of acute diverticulitis.
[2018-06-09 18:49] LABS: URINE BILIRUBIN NEGATIVE (NEGATIVE); URINE BLOOD SMALL (NEGATIVE); URINE CLARITY CLEAR (Clear); URINE COLOR STRAW (YELLOW); URINE GLUCOSE (UA) NEG (NEGATIVE); URINE LEUKOCYTE ESTERASE NEG Leu/uL (Negative); URINE PROTEIN NEGATIVE (NEGATIVE); URINE UROBILINOGEN 0.2-1.0 mg/dL (0.2-1.0)
[2018-06-09 19:26] VITALS: BP 108/57; PULSE 91; RESP 16; TEMP 98.1; O2SAT 98
== END 2018-06-09 19:48 | disposition home or self-care (01) ==
LOC: H.ER 13:07
DX: K52.9 Noninfective gastroenteritis and colitis, unspecified (principal); K21.9 Gastro-esophageal reflux disease without esophagitis; E78.00 Pure hypercholesterolemia, unspecified; Z96.643 Presence of artificial hip joint, bilateral; E03.9 Hypothyroidism, unspecified; I10 Essential (primary) hypertension; B20 Human immunodeficiency virus [HIV] disease
CPT/HCPCS: 74177; 80053; 81003; 82803; 83690; 83735; 85025; 87070; 87086; 87430; 87804; 96361; 96374; 96375; 99283; J2405; J7030; Q9966; Q9967

== ENCOUNTER 2018-06-19 09:48 | Emergency (ER) | payer OTHER ==
[2018-06-19 10:12] VITALS: O2SAT 98
[2018-06-19 10:14] VITALS: BMI 27.4
[2018-06-19] MEDS ORDERED: Sodium Chloride 0.9% 1,000 ML IV STA (11:54)
--- NOTE | 2018-06-19 12:47 | ED PDOC ---
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 Patient reports five episodes of non-bloody, non- bilious vomiting that he attributes to his thyroid condition. He states that he has an undetectable viral load and a "good" CD4 count. Denies abdominal pain and fever. PMD: Dr. Brad Ngo Past Medical History Reviewed: Historical Data, Nursing Documentation, Vital Signs Vital Signs: Last Vital Signs Temp 97.9 F 06/19/18 10:12 Pulse 64 06/19/18 10:12 Resp 18 06/19/18 10:12 BP 154/96 H 06/19/18 10:12 Pulse Ox 98 06/19/18 10:32 - Medical History PMH: Anemia, Arthritis, Depression, Gastritis, GERD, HIV, HTN, Hypercholesterolemia, Hypothyroidism, Malignancy, Sexually Transmitted Disease (HIV) Denies: CHF, COPD, Chronic Kidney Disease, Rheumatoid Arthritis - Surgical History Surgical History: Appendectomy - Family History Family History: States: Unknown Family Hx, Hypertension - Home Medications Home Medications: Ambulatory Orders Medication Instructions Recorded fentaNYL 100mcg/hr [Duragesic 1 patch TD Q72H 07/14/16 Patch 100mcg/hr] Fluticasone Nasal [Flonase] 2 spray IN Q12 10/08/17 Megestrol [Megace] 10 ml PO DAILY 10/08/17 Ciprofloxacin [Cipro] 500 mg PO BID #14 tab 10/10/17 Cyanocobalamin [Vitamin B12 1000 1,000 mcg PO DAILY #30 tab 10/10/17 mcg Tab] Darunavir [Prezista] 800 mg PO DAILY #30 tab 10/10/17 Dolutegravir Sodium [Tivicay] 50 mg PO DAILY #30 tab 10/10/17 Emtricitabine/Tenofov Alafenam 1 each PO DAILY #30 tablet 10/10/17 [Descovy 200-25 mg Tablet] Famotidine [Pepcid] 20 mg PO DAILY PRN #6 tab 10/10/17 Folic Acid 1 mg PO DAILY #30 tab 10/10/17 Gabapentin [Neurontin] 600 mg PO DAILY #30 tab 10/10/17 Levothyroxine [Synthroid] 150 mcg PO DAILY@0630 #30 tab 10/10/17 Lisinopril [Zestril] 10 mg PO DAILY #30 tab 10/10/17 Metoprolol Tartrate [Lopressor] 50 mg PO DAILY #30 tab 10/10/17 Metronidazole [Flagyl] 500 mg PO BID #14 tablet 10/10/17 Mirtazapine [Remeron] 15 mg PO HS #30 tab 10/10/17 Omeprazole 20 mg PO DAILY #30 capsule. 10/10/17 Ritonavir [Norvir] 100 mg PO DAILY #30 cap 10/10/17 Tamsulosin [Flomax] 0.4 mg PO DAILY #30 cap 10/10/17 valACYclovir [Valtrex] 1 gm PO DAILY #30 tab 10/10/17 Azithromycin [Zithromax] 500 mg PO DAILY #6 tab 01/15/18 Esomeprazole Magnesium [Nexium] 20 mg PO QAM #14 ecc 02/11/18 Famotidine [Pepcid] 20 mg PO BID #10 tab 06/09/18 Promethazine/Codeine 5 ml PO Q12 PRN #100 ml 06/09/18 [Codeine/Promethazine 10 MG/5 Ml-6.25 MG/5 Ml] - Allergies Allergies/Adverse Reactions: Allergies Allergy/AdvReac Type Severity Reaction Status Date / Time No Known Allergies Allergy Verified 06/19/18 10:31 Review of Systems ROS Statement: Except As Marked, All Systems Reviewed And Found Negative Constitutional: Negative for: Fever, Chills Gastrointestinal: Positive for: Vomiting (5 episodes nbnb), Diarrhea. Negative for: Nausea, Abdominal Pain Physical Exam - Reviewed Nursing Documentation Reviewed: Yes Vital Signs Reviewed: Yes - Physical Exam Appears: Positive for: No Acute Distress (speaking full sentences) Head Exam: Positive for: ATRAUMATIC, NORMAL INSPECTION, NORMOCEPHALIC Skin: Positive for: Normal Color, Warm, Dry Eye Exam: Positive for: EOMI, Normal appearance, PERRL Neck: Positive for: Normal, Painless ROM, Supple Cardiovascular/Chest: Positive for: Regular Rate, Rhythm. Negative for: Murmur Respiratory: Positive for: Normal Breath Sounds. Negative for: Respiratory Distress Gastrointestinal/Abdominal: Positive for: Normal Exam, Soft. Negative for: Tenderness Extremity: Positive for: Normal ROM. Negative for: Deformity Neurologic/Psych: Positive for: Alert, Oriented. Negative for: Motor/Sensory Deficits - ECG O2 Sat by Pulse Oximetry: 98 (RA) Pulse Ox Interpretation: Normal Medical Decision Making Medical Decision Makin:53 Impression: vomiting Initial Plan: --CMP --CBC --TSH --Urine dip --PT/PTT --Zofran 4 mg IV --NS IV --Influenza AB Scribe Attestation: Documented by Renee Azul acting as a scribe for Vale Benitez MD Provider Scribe Attestation: All medical record entries made by the Scribe were at my direction and personally dictated by me. I have reviewed the chart and agree that the record accurately reflects my personal performance of the history, physical exam, medical decision making, and the department course for this patient. I have also personally directed, reviewed, and agree with the discharge instructions and disposition. Disposition - Disposition
[2018-06-19 12:53] LABS: BASO # 0.1 K/uL (0.0-0.2); BASO % 0.6 % (0.0-2.0); EOS # 0.1 K/uL (0.0-0.7); EOS % 0.7 % (0.0-4.0); HEMOGLOBIN 10.8 g/dL (12.0-18.0); LYMPH # 2.1 K/uL (1.0-4.3); LYMPH % 22.6 % (20.0-40.0); MEAN CELL VOLUME 102.1 fl (80.0-94.0); MEAN CORPUSCULAR HEMOGLOBIN 34.9 pg (27.0-31.0); MEAN CORPUSCULAR HGB CONC 34.2 g/dL (33.0-37.0); MEAN PLATELET VOLUME 7.5 fl (7.2-11.7); MONO # 0.7 K/uL (0.0-0.8); MONO % 7.6 % (0.0-10.0); NEUT # 6.3 K/uL (1.8-7.0); NEUT % 68.5 % (50.0-75.0); NRBC % 0.1 % (0.0-0.0); RBC 3.08 Mil/uL (4.40-5.90); RED CELL DISTRIBUTION WIDTH 13.6 % (11.5-14.5); WHITE BLOOD COUNT 9.1 K/uL (4.8-10.8)
[2018-06-19 12:56] LABS: INR 1.2; PROTHROMBIN TIME 13.6 Seconds (9.8-13.1)
[2018-06-19 12:58] LABS: ALB/GLOB RATIO 1.2 (1.0-2.1); ALT/SGPT 37 U/L (21-72); AST/SGOT 32 U/L (17-59); BLOOD UREA NITROGEN 16 mg/dl (9-20); CALCIUM 9.3 mg/dL (8.4-10.2); GFR NON-AFRICAN AMERICAN > 60
[2018-06-19 12:59] LABS: PARTIAL THROMBOPLASTIN TIME 31.2 Seconds (25.6-37.1)
--- NOTE | 2018-06-19 13:53 | CARD ---
APPROVED REPORT Date of service: 06/19/2018 EKG Measurement Heart [id number] ID [id number] <Conclusion> Normal sinus rhythm Right bundle branch block Abnormal ECG
[2018-06-19 16:48] VITALS: BP 126/78; PULSE 78; RESP 19; TEMP 97.6
== END 2018-06-19 16:59 | disposition home or self-care (01) ==
LOC: H.ER 09:48
DX: R11.10 Vomiting, unspecified (principal); I10 Essential (primary) hypertension; Z86.59 Personal history of other mental and behavioral disorders; E78.00 Pure hypercholesterolemia, unspecified; E03.9 Hypothyroidism, unspecified
CPT/HCPCS: 80053; 84443; 85025; 85610; 85730; 87804; 93005; 96374; 99283; J2405; J7030

== ENCOUNTER 2018-07-10 09:48 | Emergency (ER) | payer OTHER ==
[2018-07-10 09:51] VITALS: BMI 27.7
[2018-07-10 09:53] VITALS: RESP 18; TEMP 98.1
--- NOTE | 2018-07-10 10:23 | ED PDOC ---
HPI: CCC, URI, Sore Throat Time Seen by Provider: 07/10/18 09:56 Chief Complaint (Nursing): Dizziness/Lightheaded Chief Complaint (Provider): Cough History Per: Patient, Edi Analyst (José Miguel #[id number]) Additional Complaint(s): Pt reports cough X 4 days with sputum production, fever (Tm 102) and sore throat. Denies CP, SOB. Pt reports "good" CD4 count. Past Medical History Reviewed: Nursing Documentation, Vital Signs Vital Signs: Last Vital Signs Temp 98.1 F 07/10/18 09:51 Pulse 100 H 07/10/18 09:51 Resp 18 07/10/18 09:51 BP 144/90 07/10/18 09:51 Pulse Ox 98 07/10/18 10:02 - Medical History PMH: Anemia, Arthritis, Depression, Gastritis, GERD, HIV, HTN, Hypercholesterolemia, Hypothyroidism, Malignancy, Sexually Transmitted Disease (HIV) Denies: CHF, COPD, Chronic Kidney Disease, Rheumatoid Arthritis - Surgical History Surgical History: Appendectomy - Family History Family History: States: Unknown Family Hx, Hypertension - Social History Current smoker - smoking cessation education provided: No - Home Medications Home Medications: Ambulatory Orders Medication Instructions Recorded fentaNYL 100mcg/hr [Duragesic 1 patch TD Q72H 07/14/16 Patch 100mcg/hr] Fluticasone Nasal [Flonase] 2 spray IN Q12 10/08/17 Megestrol [Megace] 10 ml PO DAILY 10/08/17 Ciprofloxacin [Cipro] 500 mg PO BID #14 tab 10/10/17 Cyanocobalamin [Vitamin B12 1000 1,000 mcg PO DAILY #30 tab 10/10/17 mcg Tab] Darunavir [Prezista] 800 mg PO DAILY #30 tab 10/10/17 Dolutegravir Sodium [Tivicay] 50 mg PO DAILY #30 tab 10/10/17 Emtricitabine/Tenofov Alafenam 1 each PO DAILY #30 tablet 10/10/17 [Descovy 200-25 mg Tablet] Famotidine [Pepcid] 20 mg PO DAILY PRN #6 tab 10/10/17 Folic Acid 1 mg PO DAILY #30 tab 10/10/17 Gabapentin [Neurontin] 600 mg PO DAILY #30 tab 10/10/17 Levothyroxine [Synthroid] 150 mcg PO DAILY@0630 #30 tab 10/10/17 Lisinopril [Zestril] 10 mg PO DAILY #30 tab 10/10/17 Metoprolol Tartrate [Lopressor] 50 mg PO DAILY #30 tab 10/10/17 Metronidazole [Flagyl] 500 mg PO BID #14 tablet 10/10/17 Mirtazapine [Remeron] 15 mg PO HS #30 tab 10/10/17 Omeprazole 20 mg PO DAILY #30 capsule. 10/10/17 Ritonavir [Norvir] 100 mg PO DAILY #30 cap 10/10/17 Tamsulosin [Flomax] 0.4 mg PO DAILY #30 cap 10/10/17 valACYclovir [Valtrex] 1 gm PO DAILY #30 tab 10/10/17 Azithromycin [Zithromax] 500 mg PO DAILY #6 tab 01/15/18 Esomeprazole Magnesium [Nexium] 20 mg PO QAM #14 ecc 02/11/18 Famotidine [Pepcid] 20 mg PO BID #10 tab 06/09/18 Promethazine/Codeine 5 ml PO Q12 PRN #100 ml 06/09/18 [Codeine/Promethazine 10 MG/5 Ml-6.25 MG/5 Ml] Dicyclomine [Bentyl] 20 mg PO QID PRN #10 tab 06/19/18 Ondansetron ODT [Zofran ODT] 4 mg PO Q8H PRN #20 odt 06/19/18 Azithromycin [Zithromax] 250 mg PO DAILY #4 tab 07/10/18 Ibuprofen [Motrin] 600 mg PO Q6H PRN #20 tab 07/10/18 - Allergies Allergies/Adverse Reactions: Allergies Allergy/AdvReac Type Severity Reaction Status Date / Time No Known Allergies Allergy Verified 07/10/18 10:01 Review of Systems Constitutional: Positive for: Fever Cardiovascular: Negative for: Chest Pain, Palpitations Respiratory: Positive for: Cough. Negative for: Shortness of Breath Gastrointestinal: Negative for: Vomiting, Abdominal Pain, Diarrhea Skin: Negative for: Rash, Lesions Neurological: Negative for: Headache, Dizziness Physical Exam - Reviewed Nursing Documentation Reviewed: Yes Vital Signs Reviewed: Yes - Physical Exam Appears: Positive for: Well, No Acute Distress Head Exam: Positive for: ATRAUMATIC, NORMAL INSPECTION Skin: Positive for: Normal Color, Warm, Dry Eye Exam: Positive for: Normal appearance, EOMI, PERRL ENT: Positive for: Pharynx Is (Clear). Negative for: Pharyngeal Erythema, Tonsillar Exudate, Tonsillar Swelling Neck: Positive for: Normal, Painless ROM, Supple Cardiovascular/Chest: Positive for: Regular Rate, Rhythm Respiratory: Positive for: Normal Breath Sounds. Negative for: Rales, Rhonchi, Wheezing Gastrointestinal/Abdominal: Positive for: Normal Exam Extremity: Positive for: Normal ROM Neurologic/Psych: Positive for: Alert, Oriented - Laboratory Results Result Diagrams: 07/10/18 10:37 07/10/18 10:37 - ECG O2 Sat by Pulse Oximetry: 98 Medical Decision Making Medical Decision Makin yo male with sore throat and cough. - labs - CXR - rapid Strep - Influenza Disposition - Clinical Impression Clinical Impression: URI (upper respiratory infection) - Disposition Referrals: Brad Ngo MD [Family Provider] - Disposition: Routine/Home Disposition Time: 12:55 Condition: STABLE Prescriptions: Azithromycin [Zithromax] 250 mg PO DAILY #4 tab Ibuprofen [Motrin] 600 mg PO Q6H PRN #20 tab PRN Reason: Pain, Moderate (4-7) Instructions: Bacterial Upper Respiratory Infection, Adult Forms: [facility] ([employer]) Print Language: HAITIAN
[2018-07-10 10:47] LABS: BASO # 0.1 K/uL (0.0-0.2); BASO % 0.7 % (0.0-2.0); EOS # 0.3 K/uL (0.0-0.7); EOS % 2.5 % (0.0-4.0); HEMOGLOBIN 10.7 g/dL (12.0-18.0); LYMPH # 1.7 K/uL (1.0-4.3); MEAN CELL VOLUME 105.2 fl (80.0-94.0); MEAN CORPUSCULAR HEMOGLOBIN 34.5 pg (27.0-31.0); MEAN CORPUSCULAR HGB CONC 32.8 g/dL (33.0-37.0); MEAN PLATELET VOLUME 7.2 fl (7.2-11.7); MONO # 0.5 K/uL (0.0-0.8); MONO % 4.5 % (0.0-10.0); NEUT # 8.6 K/uL (1.8-7.0); NEUT % 77.3 % (50.0-75.0); NRBC % 0.1 % (0.0-0.0); RBC 3.12 Mil/uL (4.40-5.90); RED CELL DISTRIBUTION WIDTH 14.2 % (11.5-14.5); WHITE BLOOD COUNT 11.1 K/uL (4.8-10.8)
[2018-07-10 10:53] LABS: VENOUS BLOOD GAS BASE EXCESS -3.6 mmol/L (0.0-2.0); VENOUS BLOOD GAS PCO2 34 mmHg (40-60); VENOUS BLOOD GAS PO2 30 mm/Hg (30-55); VENOUS BLOOD PH 7.39 (7.32-7.43)
[2018-07-10 11:06] LABS: ALB/GLOB RATIO 1.1 (1.0-2.1); ALBUMIN 3.9 g/dL (3.5-5.0); ALT/SGPT 18 U/L (21-72); AST/SGOT 19 U/L (17-59); BLOOD UREA NITROGEN 11 mg/dl (9-20); CALCIUM 9.4 mg/dL (8.4-10.2); GFR NON-AFRICAN AMERICAN > 60
--- NOTE | 2018-07-10 12:35 | RAD ---
Date of service: 07/10/2018 HISTORY: Cough COMPARISON: Comparison is made with 01/15/2018 TECHNIQUE: Chest PA and lateral FINDINGS: LUNGS: No active pulmonary disease. PLEURA: No significant pleural effusion identified. No pneumothorax apparent. CARDIOVASCULAR: No aortic atherosclerotic calcification present. Normal cardiac size. No pulmonary vascular congestion. OSSEOUS STRUCTURES: No significant abnormalities. VISUALIZED UPPER ABDOMEN: Normal. OTHER FINDINGS: Again seen heterogeneous calcification at the left upper chest overlying the left scapula. IMPRESSION: No active disease.
[2018-07-10 14:55] VITALS: BP 135/84; PULSE 88
[2018-07-14 09:44] VITALS: O2SAT 98
== END 2018-07-10 12:55 | disposition home or self-care (01) ==
LOC: H.ER 09:48
DX: J06.9 Acute upper respiratory infection, unspecified (principal); I10 Essential (primary) hypertension; Z86.59 Personal history of other mental and behavioral disorders
CPT/HCPCS: 71046; 80053; 82803; 85025; 87040; 87070; 87430; 87804; 96374; 99285; J1885

== ENCOUNTER 2018-08-30 10:16 | Emergency (ER) | payer OTHER ==
[2018-08-30 10:17] VITALS: BMI 27.7
[2018-08-30] MEDS ORDERED: Iohexol 240 (50 ml) PO STA (11:32)
[2018-08-30 11:39] VITALS: RESP 18
--- NOTE | 2018-08-30 11:40 | ED PDOC ---
HPI: Abdomen Time Seen by Provider: 08/30/18 11:15 Chief Complaint (Nursing): Abdominal Pain Chief Complaint (Provider): ABD PAIN/DIARRHEA History Per: Patient History/Exam Limitations: no limitations Onset/Duration Of Symptoms: Days, Persistent Outside of [place] travel?: No Current Symptoms Are (Timing): Still Present Severity: Severe Pain Scale Rating Of: 8 Location Of Pain/Discomfort: RLQ, LLQ Quality Of Discomfort: "Pain" Associated Symptoms: Chills, Nausea, Vomiting, Diarrhea. denies: Urinary Symptoms Exacerbating Factors: Food Alleviating Factors: None Last Bowel Movement: Today Additional History Per: Patient Additional Complaint(s): 63 Y/O MALE WITH HX OF HTN, HIV AND HYPOTHYROIDISM. PT PRESENTS WITH 1 WEEK HX OF DIARRHEA, ABD PAIN, N/V. PT REPORTS HE IS HAVING 4-5 EPISODES OF DIARRHEA A DAY. PT REPORTS HE HAS TAKEN 3 BOTTLES OF PEPTO BISMUTHG WITH NO RELIEF. PER PT STOOL IS WATERY AND DARK. +NAUSEA/VOMITING 2-3X A DAY. +POOR APPETITE. PT HAS BEEN SEEN IN ED FOR SAME IN THE PAST AND REPORTS HE HAS BEEN GIVEN ANTIBIOTICS FOR ILLNESS. Past Medical History Reviewed: Historical Data, Nursing Documentation, Vital Signs DANN Report Viewed: No - Medical History PMH: Anemia, Arthritis, Depression, Gastritis, GERD, HIV, HTN, Hypercholesterolemia, Hypothyroidism, Malignancy, Sexually Transmitted Disease (HIV) Denies: CHF, COPD, Chronic Kidney Disease, Rheumatoid Arthritis - Surgical History Surgical History: Appendectomy - Family History Family History: States: Unknown Family Hx, Hypertension - Social History Alcohol: None Drugs: Denies - Home Medications Home Medications: Ambulatory Orders Medication Instructions Recorded fentaNYL 100mcg/hr [Duragesic 1 patch TD Q72H 07/14/16 Patch 100mcg/hr] Fluticasone Nasal [Flonase] 2 spray IN Q12 10/08/17 Megestrol [Megace] 10 ml PO DAILY 10/08/17 Ciprofloxacin [Cipro] 500 mg PO BID #14 tab 10/10/17 Cyanocobalamin [Vitamin B12 1000 1,000 mcg PO DAILY #30 tab 10/10/17 mcg Tab] Darunavir [Prezista] 800 mg PO DAILY #30 tab 10/10/17 Dolutegravir Sodium [Tivicay] 50 mg PO DAILY #30 tab 10/10/17 Emtricitabine/Tenofov Alafenam 1 each PO DAILY #30 tablet 10/10/17 [Descovy 200-25 mg Tablet] Famotidine [Pepcid] 20 mg PO DAILY PRN #6 tab 10/10/17 Folic Acid 1 mg PO DAILY #30 tab 10/10/17 Gabapentin [Neurontin] 600 mg PO DAILY #30 tab 10/10/17 Levothyroxine [Synthroid] 150 mcg PO DAILY@0630 #30 tab 10/10/17 Lisinopril [Zestril] 10 mg PO DAILY #30 tab 10/10/17 Metoprolol Tartrate [Lopressor] 50 mg PO DAILY #30 tab 10/10/17 Metronidazole [Flagyl] 500 mg PO BID #14 tablet 10/10/17 Mirtazapine [Remeron] 15 mg PO HS #30 tab 10/10/17 Omeprazole 20 mg PO DAILY #30 capsule. 10/10/17 Ritonavir [Norvir] 100 mg PO DAILY #30 cap 10/10/17 Tamsulosin [Flomax] 0.4 mg PO DAILY #30 cap 10/10/17 valACYclovir [Valtrex] 1 gm PO DAILY #30 tab 10/10/17 Azithromycin [Zithromax] 500 mg PO DAILY #6 tab 01/15/18 Esomeprazole Magnesium [Nexium] 20 mg PO QAM #14 ecc 02/11/18 Famotidine [Pepcid] 20 mg PO BID #10 tab 06/09/18 Promethazine/Codeine 5 ml PO Q12 PRN #100 ml 06/09/18 [Codeine/Promethazine 10 MG/5 Ml-6.25 MG/5 Ml] Dicyclomine [Bentyl] 20 mg PO QID PRN #10 tab 06/19/18 Ondansetron ODT [Zofran ODT] 4 mg PO Q8H PRN #20 odt 06/19/18 Azithromycin [Zithromax] 250 mg PO DAILY #4 tab 07/10/18 Ibuprofen [Motrin] 600 mg PO Q6H PRN #20 tab 07/10/18 Ciprofloxacin [Cipro] 500 mg PO BID #10 tab 08/30/18 - Allergies Allergies/Adverse Reactions: Allergies Allergy/AdvReac Type Severity Reaction Status Date / Time No Known Allergies Allergy Verified 08/30/18 10:48 Review of Systems Constitutional: Positive for: Chills, Weakness. Negative for: Sweats Eyes: Negative for: Pain ENT: Negative for: Ear Pain, Mouth Swelling, Throat Swelling Cardiovascular: Negative for: Chest Pain, Palpitations Respiratory: Negative for: Shortness of Breath Gastrointestinal: Positive for: Nausea, Vomiting, Abdominal Pain, Diarrhea, Melena Genitourinary Male: Negative for: Dysuria Musculoskeletal: Negative for: Neck Pain, Arm Pain, Back Pain Neurological: Negative for: Weakness Physical Exam - Reviewed Nursing Documentation Reviewed: Yes Vital Signs Reviewed: Yes - Physical Exam Appears: Positive for: Uncomfortable. Negative for: No Acute Distress Head Exam: Positive for: NORMAL INSPECTION, NORMOCEPHALIC Skin: Positive for: Normal Color Eye Exam: Positive for: Normal appearance ENT: Positive for: Normal ENT Inspection (DRY MUCOUS MEMBRANES ) Neck: Positive for: Normal Cardiovascular/Chest: Positive for: Regular Rate, Rhythm Respiratory: Positive for: Normal Breath Sounds Pulses-Radial (L): 2+ Pulses-Radial (R): 2+ Gastrointestinal/Abdominal: Positive for: Bowel Sounds, Soft, Tenderness (RLQ AND LLQ). Negative for: Distended Extremity: Positive for: Normal ROM Neurological/Psych: Positive for: Awake, Alert, Normal Tone, Oriented - Laboratory Results Result Diagrams: 08/30/18 11:36 08/30/18 11:36 - Progress ED Course And Treament: CBC CMP LIPASE CT SCAN ABD/PELVIS MORPHINE 4MG IV ZOFRAN 4MG IV 1530: CLINICAL FINDINGS DISCUSSED WITH PATIENT. NO FURTHER WORK -UPNEEDED IN ED. PT TO BE D/C HOME, IMPRESSION GASTROENTERITIS/ UTI. PT GIVEN RX FOR CIPRO 500MG PO BID FOR 5 DAYS. PT EDUCATED ON DIET TO FOLLOW. FOLLOW UP WITH PMD IN 2-3 DAYS. PT GIVEN DETAILED INSTRUCTIONS AND PRECAUTIONS TO RETURN TO ED BY ME IN [place]. PT VERBALIZES UNDERSTANDING. Accession No. : [id number] Patient Name / ID : [email or web address] DONG / [id number] Exam Date : 08/30/2018 13:39:52 ( Approved ) Study Comment : Sex / Age : M / 63Y Creator : Stone Rodriguez MD Dictator : Stone Rodriguez MD Lead Mobile Developer : Pattern Maker Programer : Stone Rodriguez MD Approver2 : Report Date : 08/30/2018 14:29:59 My Comment : Date of service: 08/30/2018 PROCEDURE: CT abdomen pelvis HISTORY: Abdominal pain COMPARISON: Comparison made with prior CT scan of the abdomen and pelvis dated 06/09/2018. TECHNIQUE: Contiguous axial images of the abdomen and pelvis performed in standard fashion following oral and intravenous injection of approximately 95 cc Omnipaque 300 co ntrast material. Additional 2D sagittal and coronal reformats generated. Radiation dose: Total exam DLP = 675.76 mGy-cm. This CT exam was performed using one or more of the following dose reduction techniques: Automated exposure control, adjustment of the mA and/or kV according to patient size, and/or use of iterative reconstruction technique. FINDINGS: LOWER THORAX: Heart size is borderline/mildly enlarged. No significant pericardial effusion. There is a small hiatal hernia. Mild passive/dependent type atelectasis seen both posterior lower lung castillo. No effusion or basilar pneumothorax. LIVER: Liver is mildly enlarged measuring nearly 20 cm in CC dimension. Mild diffuse fatty hepatic infiltration.. Redemonstrated are are small low-attenuation foci seen left lobe liver likely representing small cysts. 1 or 2 additional tiny foci left lobe are not well delineated and are too small to characterize GALLBLADDER AND BILE DUCTS: Gallbladder is physiologically distended. No evidence of intraluminal gallbladder calculi. PANCREAS: Unremarkable. No mass. No ductal dilatation. SPLEEN: Unremarkable. No splenomegaly. ADRENALS: Left adrenal mass with multiple coarse calcifications. Right adrenal gland also exhibits small calcifications. Findings are of uncertain etiology though could represent sequela of prior hemorrhage KIDNEYS AND URETERS: Kidneys demonstrate symmetric nephrograms. No evidence of nephrolithiasis or hydronephrosis. BLADDER: Urinary bladder appears incompletely distended which in part accounts for slight thick-walled appearance. Muscular hypertrophy presumably contributes however cystitis or other intrinsic/invasive wall lesion not excluded. Clinical correlation recommended. Note the inferior margin of the urinary bladder and prostate gland are obscured by streak and beam hardening artifact arising from bilateral total hip replacements REPRODUCTIVE: Obscured due to streak and beam hardening artifact arising from bilateral total hip replacements. APPENDIX: No obvious inflammatory changes right lower quadrant of the abdomen. BOWEL: Evaluation of the bowel is somewhat limited due to incomplete opacification. The stomach is incompletely distended with slight thick-walled appearance. Rule out gastritis. Visualized loops of small bowel exhibit normal contour and caliber. No evidence evidence of acute mechanical bowel bowel obstruction with oral contrast seen extending into the cecum and transverse colon region. There is mild wall thickening of the sigmoid colon and rectum in part likely due to incomplete dist ention and peristalsis as well as unopacified bowel however colitis/proctitis should be excluded. Colonoscopy follow-up recommended. PERITONEUM: Unremarkable. No fluid collection. No free air. Small fat containing umbilical hernia. LYMPH NODES: Unremarkable. No enlarged lymph nodes. VASCULATURE: Unremarkable. No aortic aneurysm. Mild aortic atherosclerotic calcification or mural plaque present. BONES: Minor multilevel degenerative spondylosis of the lower thoracic and lumbar spine. Bilateral total hip replacements again noted OTHER FINDINGS: None. IMPRESSION: Wall thickening of the sigmoid colon and rectum; rule out colitis/proctitis. Follow-up colonoscopy recommended. Mild hepatomegaly with fatty hepatic infiltration again noted. Redemonstrated are multiple small low-attenuation foci left lobe liver few of which probably represent cysts others too small to characterize. Continued follow-up. Left adrenal mass with numerous small coarse calcifications. Slightly enlarged right adrenal gland which also contains coarse calcifications. Findings are of uncertain etiology though could be secondary to prior adrenal hemorrhage. Urinary bladder wall thickening in part due to incomplete distention and muscular hypertrophy however correlation with urinalysis recommended to exclude cystitis. Note that the inferior margins of the urinary bladder and prostate gland remain obscured by streak and beam hardening artifact arising from bilateral total hip replacements. Disposition - Clinical Impression Clinical Impression: UTI (urinary tract infection), Gastroenteritis - Patient ED Disposition Is Patient to be Admitted: No Counseled Patient/Family Regarding: Diagnosis, Need For Followup, Rx Given - Disposition Disposition: Routine/Home Disposition Time: 15:30 Condition: IMPROVED Prescriptions: Ciprofloxacin [Cipro] 500 mg PO BID #10 tab Instructions: Urinary Tract Infections in Adults, Diarrhea in Adolescents and Adults Forms: [employer] (Albanian), [employer] (Korean) Print Language: [place] - POA Present On Arrival: None
[2018-08-30 11:46] LABS: BASO % 0.7 % (0.0-2.0); EOS # 0.2 K/uL (0.0-0.7); EOS % 3.3 % (0.0-4.0); HEMOGLOBIN 11.6 g/dL (12.0-18.0); LYMPH # 2.7 K/uL (1.0-4.3); LYMPH % 43.4 % (20.0-40.0); MEAN CELL VOLUME 102.6 fl (80.0-94.0); MEAN CORPUSCULAR HGB CONC 34.1 g/dL (33.0-37.0); MEAN PLATELET VOLUME 7.8 fl (7.2-11.7); MONO # 0.5 K/uL (0.0-0.8); MONO % 8.3 % (0.0-10.0); NEUT # 2.7 K/uL (1.8-7.0); NEUT % 44.3 % (50.0-75.0); RBC 3.33 Mil/uL (4.40-5.90); RED CELL DISTRIBUTION WIDTH 14.8 % (11.5-14.5); WHITE BLOOD COUNT 6.2 K/uL (4.8-10.8)
[2018-08-30 12:04] LABS: ALB/GLOB RATIO 1.2 (1.0-2.1); ALBUMIN 4.3 g/dL (3.5-5.0); ALT/SGPT 25 U/L (21-72); AST/SGOT 32 U/L (17-59); BLOOD UREA NITROGEN 11 mg/dl (9-20); CALCIUM 9.4 mg/dL (8.4-10.2); GFR NON-AFRICAN AMERICAN > 60; LIPASE 213 U/L (23-300)
[2018-08-30] MEDS ORDERED: Iohexol 240 (50 ml) ONE (12:05)
[2018-08-30] MEDS ORDERED: Sodium Chloride 0.9% 1,000 ML IV SCH (12:15)
[2018-08-30] MEDS ORDERED: Sodium Chloride 0.9% 1,000 ML IV ONE (12:45)
[2018-08-30 12:57] LABS: SQUAMOUS EPITHIAL < 1 /hpf (0-5); URINE BACTERIA RARE (<OCC); URINE BILIRUBIN NEGATIVE (NEGATIVE); URINE BLOOD NEGATIVE (NEGATIVE); URINE CLARITY CLEAR (Clear); URINE COLOR AMBER (YELLOW); URINE GLUCOSE (UA) NEG (NEGATIVE); URINE HYALINE CAST 0-2 /hpf (0-2); URINE LEUKOCYTE ESTERASE NEG Leu/uL (Negative); URINE PROTEIN 30 mg/dL (NEGATIVE)
[2018-08-30] MEDS ORDERED: Iohexol 300 100 ML IJ ONE (13:36)
[2018-08-30] MEDS ORDERED: Sodium Chloride 0.9% 50 ML IV ONE (13:36)
--- NOTE | 2018-08-30 14:33 | CT ---
Date of service: 08/30/2018 PROCEDURE: CT abdomen pelvis HISTORY: Abdominal pain COMPARISON: Comparison made with prior CT scan of the abdomen and pelvis dated 06/09/2018. TECHNIQUE: Contiguous axial images of the abdomen and pelvis performed in standard fashion following oral and intravenous injection of approximately 95 cc Omnipaque 300 contrast material. Additional 2D sagittal and coronal reformats generated. Radiation dose: Total exam DLP = 675.76 mGy-cm. This CT exam was performed using one or more of the following dose reduction techniques: Automated exposure control, adjustment of the mA and/or kV according to patient size, and/or use of iterative reconstruction technique. FINDINGS: LOWER THORAX: Heart size is borderline/mildly enlarged. No significant pericardial effusion. There is a small hiatal hernia. Mild passive/dependent type atelectasis seen both posterior lower lung castillo. No effusion or basilar pneumothorax. LIVER: Liver is mildly enlarged measuring nearly 20 cm in CC dimension. Mild diffuse fatty hepatic infiltration.. Redemonstrated are are small low-attenuation foci seen left lobe liver likely representing small cysts. 1 or 2 additional tiny foci left lobe are not well delineated and are too small to characterize GALLBLADDER AND BILE DUCTS: Gallbladder is physiologically distended. No evidence of intraluminal gallbladder calculi. PANCREAS: Unremarkable. No mass. No ductal dilatation. SPLEEN: Unremarkable. No splenomegaly. ADRENALS: Left adrenal mass with multiple coarse calcifications. Right adrenal gland also exhibits small calcifications. Findings are of uncertain etiology though could represent sequela of prior hemorrhage KIDNEYS AND URETERS: Kidneys demonstrate symmetric nephrograms. No evidence of nephrolithiasis or hydronephrosis. BLADDER: Urinary bladder appears incompletely distended which in part accounts for slight thick-walled appearance. Muscular hypertrophy presumably contributes however cystitis or other intrinsic/invasive wall lesion not excluded. Clinical correlation recommended. Note the inferior margin of the urinary bladder and prostate gland are obscured by streak and beam hardening artifact arising from bilateral total hip replacements REPRODUCTIVE: Obscured due to streak and beam hardening artifact arising from bilateral total hip replacements. APPENDIX: No obvious inflammatory changes right lower quadrant of the abdomen. BOWEL: Evaluation of the bowel is somewhat limited due to incomplete opacification. The stomach is incompletely distended with slight thick-walled appearance. Rule out gastritis. Visualized loops of small bowel exhibit normal contour and caliber. No evidence evidence of acute mechanical bowel bowel obstruction with oral contrast seen extending into the cecum and transverse colon region. There is mild wall thickening of the sigmoid colon and rectum in part likely due to incomplete distention and peristalsis as well as unopacified bowel however colitis/proctitis should be excluded. Colonoscopy follow-up recommended. PERITONEUM: Unremarkable. No fluid collection. No free air. Small fat containing umbilical hernia. LYMPH NODES: Unremarkable. No enlarged lymph nodes. VASCULATURE: Unremarkable. No aortic aneurysm. Mild aortic atherosclerotic calcification or mural plaque present. BONES: Minor multilevel degenerative spondylosis of the lower thoracic and lumbar spine. Bilateral total hip replacements again noted OTHER FINDINGS: None. IMPRESSION: Wall thickening of the sigmoid colon and rectum; rule out colitis/proctitis. Follow-up colonoscopy recommended. Mild hepatomegaly with fatty hepatic infiltration again noted. Redemonstrated are multiple small low-attenuation foci left lobe liver few of which probably represent cysts others too small to characterize. Continued follow-up. Left adrenal mass with numerous small coarse calcifications. Slightly enlarged right adrenal gland which also contains coarse calcifications. Findings are of uncertain etiology though could be secondary to prior adrenal hemorrhage. Urinary bladder wall thickening in part due to incomplete distention and muscular hypertrophy however correlation with urinalysis recommended to exclude cystitis. Note that the inferior margins of the urinary bladder and prostate gland remain obscured by streak and beam hardening artifact arising from bilateral total hip replacements.
[2018-08-30 15:53] VITALS: BP 111/71; PULSE 67; TEMP 99; O2SAT 98
== END 2018-08-30 15:53 | disposition home or self-care (01) ==
LOC: H.ER 10:16
DX: N39.0 Urinary tract infection, site not specified (principal); K52.9 Noninfective gastroenteritis and colitis, unspecified; E03.9 Hypothyroidism, unspecified; E27.49 Other adrenocortical insufficiency; E78.00 Pure hypercholesterolemia, unspecified; I10 Essential (primary) hypertension; Z96.643 Presence of artificial hip joint, bilateral; B20 Human immunodeficiency virus [HIV] disease; K21.9 Gastro-esophageal reflux disease without esophagitis; F32.9 Major depressive disorder, single episode, unspecified; K44.9 Diaphragmatic hernia without obstruction or gangrene; E27.9 Disorder of adrenal gland, unspecified
CPT/HCPCS: 74177; 80053; 81003; 83690; 85025; 87086; 96361; 96374; 96375; 99284; J2270; J2405; J7030; Q9966; Q9967

== ENCOUNTER 2018-09-03 15:05 | Emergency (ER) | payer OTHER ==
[2018-09-03 15:05] VITALS: BMI 27.7
[2018-09-03 15:10] VITALS: RESP 16
[2018-09-03] MEDS ORDERED: Sodium Chloride 0.9% 1,000 ML IV STA (15:31)
--- NOTE | 2018-09-03 15:35 | ED PDOC ---
Syncope/Near Syncope/Dizziness Time Seen by Provider: 09/03/18 15:13 Chief Complaint (Nursing): Dizziness/Lightheaded Chief Complaint (Provider): Dizziness History Per: Patient History/Exam Limitations: no limitations Onset/Duration Of Symptoms: Days (today) Additional Complaint(s): Pt. was doing well at [employer] and standing with everyone. Then he started getting dizziness like light-headed. He sat down and was sweating and asked for an ambulance. Pt. denies passing out. Has had diarrhea and nausea/vomit for several days. No abd pain. Feels weak all over. No back pain, dysuria, vision changes, headaches. No numbness, tingles. Past Medical History Reviewed: Nursing Documentation, Vital Signs Vital Signs: Last Vital Signs Temp 97.5 F L 09/03/18 15:06 Pulse 82 09/03/18 15:06 Resp 16 09/03/18 15:06 BP 109/72 09/03/18 15:06 Pulse Ox 98 09/03/18 15:06 - Medical History PMH: Anemia, Arthritis, Depression, Gastritis, GERD, HIV, HTN, Hypercholesterolemia, Hypothyroidism, Malignancy, Sexually Transmitted Disease (HIV) Denies: CHF, COPD, Chronic Kidney Disease, Rheumatoid Arthritis - Surgical History Surgical History: Appendectomy - Family History Family History: States: Unknown Family Hx, Hypertension - Home Medications Home Medications: Ambulatory Orders Medication Instructions Recorded fentaNYL 100mcg/hr [Duragesic 1 patch TD Q72H 07/14/16 Patch 100mcg/hr] Fluticasone Nasal [Flonase] 2 spray IN Q12 10/08/17 Megestrol [Megace] 10 ml PO DAILY 10/08/17 Ciprofloxacin [Cipro] 500 mg PO BID #14 tab 10/10/17 Cyanocobalamin [Vitamin B12 1000 1,000 mcg PO DAILY #30 tab 10/10/17 mcg Tab] Darunavir [Prezista] 800 mg PO DAILY #30 tab 10/10/17 Dolutegravir Sodium [Tivicay] 50 mg PO DAILY #30 tab 10/10/17 Emtricitabine/Tenofov Alafenam 1 each PO DAILY #30 tablet 10/10/17 [Descovy 200-25 mg Tablet] Famotidine [Pepcid] 20 mg PO DAILY PRN #6 tab 10/10/17 Folic Acid 1 mg PO DAILY #30 tab 10/10/17 Gabapentin [Neurontin] 600 mg PO DAILY #30 tab 10/10/17 Levothyroxine [Synthroid] 150 mcg PO DAILY@0630 #30 tab 10/10/17 Lisinopril [Zestril] 10 mg PO DAILY #30 tab 10/10/17 Metoprolol Tartrate [Lopressor] 50 mg PO DAILY #30 tab 10/10/17 Metronidazole [Flagyl] 500 mg PO BID #14 tablet 10/10/17 Mirtazapine [Remeron] 15 mg PO HS #30 tab 10/10/17 Omeprazole 20 mg PO DAILY #30 capsule. 10/10/17 Ritonavir [Norvir] 100 mg PO DAILY #30 cap 10/10/17 Tamsulosin [Flomax] 0.4 mg PO DAILY #30 cap 10/10/17 valACYclovir [Valtrex] 1 gm PO DAILY #30 tab 10/10/17 Azithromycin [Zithromax] 500 mg PO DAILY #6 tab 01/15/18 Esomeprazole Magnesium [Nexium] 20 mg PO QAM #14 ecc 02/11/18 Famotidine [Pepcid] 20 mg PO BID #10 tab 06/09/18 Promethazine/Codeine 5 ml PO Q12 PRN #100 ml 06/09/18 [Codeine/Promethazine 10 MG/5 Ml-6.25 MG/5 Ml] Dicyclomine [Bentyl] 20 mg PO QID PRN #10 tab 06/19/18 Ondansetron ODT [Zofran ODT] 4 mg PO Q8H PRN #20 odt 06/19/18 Azithromycin [Zithromax] 250 mg PO DAILY #4 tab 07/10/18 Ibuprofen [Motrin] 600 mg PO Q6H PRN #20 tab 07/10/18 Ciprofloxacin [Cipro] 500 mg PO BID #10 tab 08/30/18 Metronidazole [Flagyl] 500 mg PO TID 7 Days tablet 09/03/18 - Allergies Allergies/Adverse Reactions: Allergies Allergy/AdvReac Type Severity Reaction Status Date / Time No Known Allergies Allergy Verified 09/03/18 15:05 Review of Systems ROS Statement: Except As Marked, All Systems Reviewed And Found Negative Constitutional: Positive for: Sweats Neurological: Positive for: Weakness, Dizziness Physical Exam - Reviewed Nursing Documentation Reviewed: Yes Vital Signs Reviewed: Yes - Physical Exam Appears: Positive for: Non-toxic, No Acute Distress Head Exam: Positive for: ATRAUMATIC, NORMAL INSPECTION, NORMOCEPHALIC Skin: Positive for: Normal Color, Warm, DRY Eye Exam: Positive for: EOMI, Normal appearance, PERRL ENT: Positive for: Normal ENT Inspection Neck: Positive for: Normal, Painless ROM Cardiovascular/Chest: Positive for: Regular Rate, Rhythm Respiratory: Positive for: CNT, Normal Breath Sounds Gastrointestinal/Abdominal: Positive for: Normal Exam, Soft. Negative for: Tenderness Back: Positive for: Normal Inspection. Negative for: L CVA Tenderness, R CVA Tenderness Extremity: Positive for: Normal ROM. Negative for: Tenderness, Pedal Edema Neurological/Psych: Positive for: Awake, Alert, Normal Tone, heavy mobile equipment operator II-XII. Negative for: Motor/Sensory Deficits, Facial Droop - Laboratory Results Result Diagrams: 09/03/18 16:23 09/03/18 16:23 Lab Results: cr 2.1 - ECG ECG: Positive for: Interpreted By Me, Viewed By Me ECG Rhythm: Positive for: Right Bundle Branch Block O2 Sat by Pulse Oximetry: 98 Pulse Ox Interpretation: Normal - CT Scan/US ct Other Rad Studies (CT/US): Read By Radiologist Other Rad Interpretation: no acute - Progress ED Course And Treament: Pt. here several days ago with abd issues. Had ct with ? colitis. Given cipro on dc. Symptoms still present. 1725: Stable. AAOx3. Pain free. Eating a full mean. No dizziness. Will stop cipro due to renal insuff. Will rx flagyl. Fu with pcp. Disposition - Clinical Impression Clinical Impression: Dizziness, Renal insufficiency - Patient ED Disposition Is Patient to be Admitted: No Counseled Patient/Family Regarding: Studies Performed, Diagnosis, Need For Followup, Rx Given - Disposition Referrals: [facility] [Outside] - 09/04/18 Disposition: Routine/Home Disposition Time: 17:28 Condition: STABLE Additional Instructions: Return if not better in 3 days. Stop ciprofloxacin. Start medicine prescribed today. Regreso si no mejor en 3 lester. [place] de ciprofloxacina. Comience la medicina prescrita hoy. Prescriptions: Metronidazole [Flagyl] 500 mg PO TID 7 Days tablet Instructions: Dizziness, Nonvertigo, (DC), Kidney Disease Diet (For People Not on Dialysis) Forms: [facility] (Ivorian) Print Language: TAMAZIGHT
[2018-09-03 16:28] LABS: BASO # 0.1 K/uL (0.0-0.2); BASO % 0.6 % (0.0-2.0); EOS # 0.2 K/uL (0.0-0.7); EOS % 2.2 % (0.0-4.0); HEMOGLOBIN 11.8 g/dL (12.0-18.0); LYMPH # 1.4 K/uL (1.0-4.3); LYMPH % 14.3 % (20.0-40.0); MEAN CELL VOLUME 102.4 fl (80.0-94.0); MEAN CORPUSCULAR HEMOGLOBIN 34.6 pg (27.0-31.0); MEAN CORPUSCULAR HGB CONC 33.8 g/dL (33.0-37.0); MEAN PLATELET VOLUME 7.7 fl (7.2-11.7); MONO # 0.7 K/uL (0.0-0.8); MONO % 6.7 % (0.0-10.0); NEUT # 7.5 K/uL (1.8-7.0); NEUT % 76.2 % (50.0-75.0); RBC 3.42 Mil/uL (4.40-5.90); RED CELL DISTRIBUTION WIDTH 15.1 % (11.5-14.5); WHITE BLOOD COUNT 9.8 K/uL (4.8-10.8)
[2018-09-03 16:40] LABS: ALB/GLOB RATIO 1.3 (1.0-2.1); ALBUMIN 4.1 g/dL (3.5-5.0); ALT/SGPT 23 U/L (21-72); AST/SGOT 25 U/L (17-59); BLOOD UREA NITROGEN 18 mg/dl (9-20); CALCIUM 9.6 mg/dL (8.4-10.2); GFR NON-AFRICAN AMERICAN 32
[2018-09-03 16:46] LABS: INR 1.2; PROTHROMBIN TIME 13.7 Seconds (9.8-13.1)
[2018-09-03 16:49] LABS: PARTIAL THROMBOPLASTIN TIME 28.9 Seconds (25.6-37.1)
--- NOTE | 2018-09-03 16:59 | CT ---
Date of service: 09/03/2018 PROCEDURE: CT HEAD WITHOUT CONTRAST. HISTORY: Headache COMPARISON: Ana in made with prior study 10/08/2017. TECHNIQUE: Axial computed tomography images were obtained through the head/brain without intravenous contrast. Radiation dose: Total exam DLP = 830.35 mGy-cm. This CT exam was performed using one or more of the following dose reduction techniques: Automated exposure control, adjustment of the mA and/or kV according to patient size, and/or use of iterative reconstruction technique. FINDINGS: HEMORRHAGE: No acute parenchymal, subarachnoid or extra-axial hemorrhage. BRAIN: Redemonstrated is a large area of cystic encephalomalacia right inferior frontal pole in this patient who is post bifrontal craniotomy. Clinical correlation with history recommended. Mild moderate diffuse/confluent chronic periventricular white matter ischemic changes seen extending peripherally into the deep white matter both cerebral hemispheres. VENTRICLES: No obstructive hydrocephalus. CALVARIUM: Craniotomy with exenteration of the frontal sinus PARANASAL SINUSES: Exenteration changes of the frontal sinus. Remaining paranasal sinuses are well-developed and currently well-aerated. No fluid levels seen to suggest acute sinusitis. MASTOID AIR CELLS: Unremarkable as visualized. No inflammatory changes. OTHER FINDINGS: None. IMPRESSION: No acute intracranial hemorrhage. 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 Clinical correlation with history recommended. Mild moderate diffuse/confluent chronic periventricular white matter ischemic changes seen extending peripherally into the deep white matter both cerebral hemispheres.
[2018-09-03 18:03] VITALS: BP 109/65; PULSE 74; TEMP 98; O2SAT 97
--- NOTE | 2018-09-04 09:18 | CARD ---
APPROVED REPORT Date of service: 09/03/2018 EKG Measurement Heart [id number] <Conclusion> Normal sinus rhythm Right bundle branch block Abnormal ECG
== END 2018-09-03 18:00 | disposition home or self-care (01) ==
LOC: H.ER 15:05
DX: R42 Dizziness and giddiness (principal); N18.9 Chronic kidney disease, unspecified; E03.9 Hypothyroidism, unspecified; E78.00 Pure hypercholesterolemia, unspecified; I10 Essential (primary) hypertension
CPT/HCPCS: 70450; 80053; 84484; 85025; 85610; 85730; 93005; 99284; J2405; J7030